=== PATIENT | female | born 1950 | race Caucasian/White ===

== ENCOUNTER 2017-08-28 15:46 | Emergency (ER) | payer MEDICARE ==
[2017-08-28] MEDS ORDERED: ISOVUE-370 76%-LOCM 1 ML ONE (16:03)
--- NOTE | 2017-08-28 16:25 | RAD ---
CHEST ONE VIEW: History: Dizziness. Dyspnea. Comparison: 11-25-15 FINDINGS: Cardiac silhouette is magnified by projection. Pulmonary vasculature is unremarkable. Mediastinum is midline. There is no confluent airspace consolidation or evidence of pneumothorax. IMPRESSION: No active cardiopulmonary abnormalities are demonstrated. POS: [facility]
[2017-08-28 16:28] LABS: #Eosinphils 0.5 thou/uL (0.0-0.7); #Lymphocytes 2.2 thou/uL (1.20-3.40); #Monocytes 0.4 thou/uL (0.11-0.59); #Neutrophils 6.8 thou/uL (1.40-6.50); %Basophils 0.5 % (0.0-1.0); %Eosinophils 5.2 % (0.0-10.0); %Lymphocytes 22.2 % (21.0-51.0); %Monocytes 4.4 % (0.0-10.0); Hematocrit 34.8 % (36.0-47.0); Mean Platelet Volume 7.6 fL (7.4-10.4); Red Blood Cell (RBC) Count 3.56 mill/uL (4.20-5.40)
[2017-08-28 16:46] LABS: Lactic Acid - Sepsis 1.2 mmol/L (0.5-2.2)
--- NOTE | 2017-08-28 16:48 | CT ---
CT CERVICAL SPINE NONCONTRAST: 08/28/17 HISTORY: Neck injury. COMPARISON: 12/08/11 FINDINGS: Vertebral body heights and alignment are maintained. Bone island within the C3 vertebral body is sim ilar in appearance to the prior study. Degenerative changes at the right C2-3 facet has progressed s ruben the prior study. Scattered disc bulge and osteophytosis are again demonstrated. There is calcif ication of the arterial structures. IMPRESSION: 1. Cervical spondylosis. No acute osseous abnormalities are demonstrated. 2. Atherosclerosis. POS: [facility]
[2017-08-28 16:50] LABS: ALT (SGPT) 24 U/L (8-55); AST (SGOT) 26 U/L (5-34); Alkaline Phosphatase 81 U/L (40-150); Anion Gap 14 mmol/L (10-20); BUN (Urea Nitrogen) 15 mg/dL (9.8-20.1); Bilirubin, Total 0.4 mg/dL (0.2-1.2); CK (CPK) 46 U/L (29-168); Calc. Creatinine Clearance 0 mL/min (70-130); Calcium 10.5 mg/dL (7.8-10.44); Carbon Dioxide 36 mmol/L (23-31); Chloride 95 mmol/L (98-107); Estimated GFR-MDRD 14; Globulin 3.5 g/dL (2.4-3.5); Magnesium 2.2 mg/dL (1.6-2.6); Protein, Total 7.5 g/dL (6.0-8.3)
--- NOTE | 2017-08-28 16:51 | CT ---
HEAD CT WITHOUT CONTRAST: 08/28/17 COMPARISON: 08/29/13 HISTORY: 66-year-old female status post dialysis with complaints of elevated blood pressure and dizziness. TECHNIQUE: Serial axial CT imaging obtained at 5 mm intervals from vertex through skull base without contrast. FINDINGS: The imaged paranasal sinuses and mastoid air cells are well aerated. There is no displaced calvarial fracture. There is atherosclerotic calcification of the cavernous carotid arteries and the distal v ertebral arteries. There is no intracranial hemorrhage, midline shift, mass effect or ventricular en largement. There is abnormal increased density involving the globe on the left with peripheral calci fications of the left globe suggesting sequela of prior trauma or surgery, an appearance which is st able when compared to the 08/29/13 exam. IMPRESSION: Stable head CT. No intracranial hemorrhage. POS: [facility]
[2017-08-28 16:54] LABS: Troponin I 0.012 ng/mL (< 0.028)
[2017-08-28] MEDS ORDERED: Diazepam 10 MG/2 ML SYRINGE ONE (19:12)
--- NOTE | 2017-08-28 19:20 | CT ---
CTA OF THE NECK UTILIZING IV CONTRAST AND 3D REFORMATTED IMAGIN08/28/17 INDICATION: History of right sided vascular murmur as well as neck pain and immunodeficiency. COMPARISON: Prior exam dated 08/29/13. FINDINGS: No hemodynamically significant stenosis is seen involving the internal carotid arteries. There is mo derate calcification noted involving the proximal ICA/slightly more progressed in extent from the co mparison exam. There is extensive calcification involving the intracranial carotid arteries that matheus ear slightly more pronounced from the prior exam. The vertebral arteries are patent throughout they entire course. There is some mild vascular calcifications seen along their proximal cervical segment s. The subclavian and common carotid arteries appear within normal limits. No definite central canal narrowing is evident. No definite fluid collection is grossly evident within the osseous central ca nal. There is mild multilevel spondylosis of the cervical spine. No acute fracture is evident. There is a sclerotic lesion within the left aspect of C4 which is stable suspicious for bone island. The parotid and submandibular glands are normal appearing. The thyroid gland is normal appearing. No lymphadenopathy is evident. The visualized paranasal sinuses are clear. There is calcification invo lving the left orbit which may be related to chronic retinal detachment. The right modoc lens has b een replaced. IMPRESSION: 1. No hemodynamically significant stenosis. 2. No definite suspicious fluid collection evident within the central canal of the cervical spi ne to suggest an epidural abscess grossly. 3. No lymphadenopathy is evident. No definite soft tissue mass is evident within the neck. 4. Calcification involving the left globe likely related to chronic retinal detachment. 5. Mild spondylosis of the cervical spine. POS: [facility]
--- NOTE | 2017-09-07 16:40 | EKG ---
Test Reason : DIZZINESS Blood Pressure : / mmHG Vent. Rate : 068 BPM Atrial Rate : 068 BPM P-R Int : 196 ms QRS Dur : 088 ms QT Int : 432 ms P-R-T Axes : 059 010 096 degrees QTc Int : 459 ms Normal sinus rhythm Abnormal ECG nc since 25-NOV-2015 Confirmed by NEGRITO ENGLISH, MARISELA ([id number]), makeup editor AMY ADAMS ([id number]) on 09/07/2017 4:40:19 PM Referred By: MAHIN Confirmed By:MARISELA MAHAN MD
== END 2017-08-28 19:40 | disposition home or self-care (01) ==
LOC: ERS 15:46
DX: M54.2 Cervicalgia (principal); I25.2 Old myocardial infarction; I11.0 Hypertensive heart disease with heart failure; I50.9 Heart failure, unspecified; E11.9 Type 2 diabetes mellitus without complications; D50.0 Iron deficiency anemia secondary to blood loss (chronic); F41.9 Anxiety disorder, unspecified; F32.9 Major depressive disorder, single episode, unspecified; Z79.82 Long term (current) use of aspirin; Z79.899 Other long term (current) drug therapy; Z79.4 Long term (current) use of insulin; Z99.2 Dependence on renal dialysis
CPT/HCPCS: 70450; 70498; 71010; 72125; 80053; 82553; 83605; 83735; 84484; 85025; 93005; 96374; J3360

== ENCOUNTER 2017-09-23 12:27 | Emergency (ER) | payer MEDICARE ==
[2017-09-23 13:49] LABS: #Eosinphils 0.3 thou/uL (0.0-0.7); #Lymphocytes 2.2 thou/uL (1.20-3.40); #Monocytes 0.6 thou/uL (0.11-0.59); #Neutrophils 6.8 thou/uL (1.40-6.50); %Basophils 0.3 % (0.0-1.0); %Eosinophils 2.9 % (0.0-10.0); %Lymphocytes 22.1 % (21.0-51.0); %Monocytes 5.8 % (0.0-10.0); Hematocrit 35.7 % (36.0-47.0); Mean Platelet Volume 7.2 fL (7.4-10.4); Red Blood Cell (RBC) Count 3.55 mill/uL (4.20-5.40); White Blood Cell (WBC) Count 9.8 thou/uL (4.8-10.8)
[2017-09-23 14:09] LABS: Lactic Acid - Sepsis 0.8 mmol/L (0.5-2.2)
[2017-09-23 14:12] LABS: ALT (SGPT) 15 U/L (8-55); AST (SGOT) 18 U/L (5-34); Alkaline Phosphatase 75 U/L (40-150); Anion Gap 14 mmol/L (10-20); BUN (Urea Nitrogen) 24 mg/dL (9.8-20.1); Bilirubin, Total 0.4 mg/dL (0.2-1.2); CK (CPK) 53 U/L (29-168); Calc. Creatinine Clearance 0 mL/min (70-130); Carbon Dioxide 29 mmol/L (23-31); Chloride 100 mmol/L (98-107); Estimated GFR-MDRD 11; Globulin 3.2 g/dL (2.4-3.5); Protein, Total 7.1 g/dL (6.0-8.3)
[2017-09-23 14:27] LABS: Troponin I 0.016 ng/mL (< 0.028)
--- NOTE | 2017-09-23 14:40 | RAD ---
PORTABLE AP CHEST XRAY: DATE: 09/23/17. HISTORY: Cough, hemoptysis. COMPARISON: 08/28/17. FINDINGS: The cardiac silhouette and pulmonary vasculature are within normal limits for the portable technique of the study. The lungs are clear. Osseous structures are intact. IMPRESSION: No acute cardiopulmonary process. POS: [facility]
--- NOTE | 2017-09-23 16:20 | CT ---
CT PULMONARY ANGIO CHEST WITH IV CONTRAST: Date: 09/23/17 Multiple axial tomograms obtained through chest following pulmonary angio protocol with multiplanar r econstructions and 3D postprocessing. HISTORY: Cough, hemoptysis. FINDINGS: The pulmonary arteries show adequate opacification. There is no evidence of pulmonary embolus. The lungs are clear of infiltrate. No effusion. Some mild linear atelectasis in the left lung base is noted. Mediastinum is unremarkable. Thoracic aorta is unremarkable. No evidence of dissection. Mild atherosc lerotic change is noted. Evidence of small sliding diaphragmatic hernia. IMPRESSION: 1. No evidence of pulmonary embolus. 2. Linear atelectasis in the left mid lung. 3. Otherwise no acute process. POS: [facility]
== END 2017-09-23 16:22 | disposition home or self-care (01) ==
LOC: ERS 12:27
DX: R05 Cough (principal); I25.2 Old myocardial infarction; E11.9 Type 2 diabetes mellitus without complications; I11.0 Hypertensive heart disease with heart failure; I50.9 Heart failure, unspecified; F41.9 Anxiety disorder, unspecified; F32.9 Major depressive disorder, single episode, unspecified; Z79.82 Long term (current) use of aspirin; Z79.4 Long term (current) use of insulin; Z79.899 Other long term (current) drug therapy
CPT/HCPCS: 36415; 71010; 71275; 80053; 82550; 82553; 83605; 84484; 85025; 85379; 93005

== ENCOUNTER 2020-06-04 14:51 | Inpatient (IN) | payer MEDICARE ==
[2020-06-04] MEDS ORDERED: methylPREDNISolone Sod Succ/PF 125 MG/2 ML VIAL ONE ×2 (15:16→15:19)
[2020-06-04] MEDS ORDERED: Ondansetron PF 4 MG/2 ML Vial ONE ×2 (15:16→15:19)
[2020-06-04 15:23] LABS: #Basophils 0.1 thou/uL (0.0-0.2); #Lymphocytes 1.4 thou/uL (1.20-3.40); #Monocytes 0.3 thou/uL (0.11-0.59); #Neutrophils 17.1 thou/uL (1.40-6.50); %Basophils 0.4 % (0.0-1.0); %Eosinophils 0.3 % (0.0-10.0); %Lymphocytes 7.5 % (21.0-51.0); %Monocytes 1.5 % (0.0-10.0); %Neutrophils 90.3 % (42.0-75.0); Hemoglobin 12.1 g/dL (12.0-16.0); Mean Corpuscular HGB CONC 30.8 g/dL (32.0-36.0); Mean Corpuscular Volume 97.5 fL (78.0-98.0); Mean Platelet Volume 7.8 fL (7.4-10.4); Platelet Count 396 thou/uL (130-400); RBC Distribution Width 13.1 % (11.5-14.5); Red Blood Cell (RBC) Count 4.01 mill/uL (4.20-5.40); White Blood Cell (WBC) Count 18.9 thou/uL (4.8-10.8)
[2020-06-04 15:27] LABS: Base Excess-Venous -2.4 mmol/L (-2.0 to 3.0); CO2 Tension (PvCO2) 31.4 mmHg (40.0-50.0); Calcium, Ionized 0.96 mmol/L (See Comments:); Chloride 104 mmol/L (98-107); Hemoglobin - Calc 14.2 g/dL (12.0-16.0); Potassium 5.5 mmol/L (3.5-5.1); Sodium 134 mmol/L (138-145); T. Carbon Dioxide 21.9 mmol/L (22.0-28.0); vO2 Saturation-calc 99.7 % (60.0-85.0)
[2020-06-04 15:32] LABS: PTT 21.6 sec (22.9-36.1); Prothrombin Time 12.9 sec (12.0-14.7)
[2020-06-04] MEDS ORDERED: Albuterol Sulfate 2.5 mg/3 ml Neb ONE (15:36)
[2020-06-04] MEDS ORDERED: Albuterol Sulfate 2.5 mg/0.5 ml Neb ONE (15:36)
[2020-06-04] MEDS ORDERED: Lorazepam 2 MG/ML VIAL ONE ×2 (15:41→18:51)
[2020-06-04 15:44] LABS: ALT (SGPT) 11 U/L (8-55); AST (SGOT) 24 U/L (5-34); Albumin 4.1 g/dL (3.4-4.8); Alkaline Phosphatase 104 U/L (40-110); Anion Gap 25 mmol/L (10-20); BUN (Urea Nitrogen) 72 mg/dL (9.8-20.1); Bilirubin, Total 0.7 mg/dL (0.2-1.2); Calc. Creatinine Clearance 0 mL/min (70-130); Calcium 9.8 mg/dL (7.8-10.44); Carbon Dioxide 18 mmol/L (23-31); Chloride 98 mmol/L (98-107); Estimated GFR-MDRD 7; Glucose 179 mg/dL (80-115); Potassium 5.6 mmol/L (3.5-5.1); Protein, Total 8.1 g/dL (6.0-8.3); Sodium 135 mmol/L (136-145)
[2020-06-04 16:06] LABS: CKMB 1.9 ng/mL (0-6.6)
--- NOTE | 2020-06-04 16:29 | RAD ---
EXAM: CHEST ONE VIEW HISTORY: Dyspnea and shortness of breath. COMPARISON: 02/11/2018 FINDINGS: Postoperative changes related to CABG are again noted. There is been interval placement of a dual phuong d right subclavian cardiac pacemaking device. Vascular stent is now seen overlying the region of the left axillary and subclavian vessels. Bilateral perihilar interstitial and alveolar opacities are seen with bibasilar pleural and parenchymal lung changes probably due to bilateral pleural effusions and associated volume loss. Cardiac borders are obscured, but the cardiac silhouette does a ppear mildly enlarged. Vascular calcification in the thoracic aorta. Osteopenia is present. No other interval change. IMPRESSION: 1. Bilateral perihilar interstitial and alveolar opacities which may represent infectious process or asymmetric pulmonary edema. 2. Bilateral pleural effusions and associated atelectasis. 3. Cardiomegaly. 4. Osteopenia.
--- NOTE | 2020-06-04 19:17 | CON ---
DATE OF CONSULTATION: 06/04/2020 CONSULTING PHYSICIAN: ER doctor. REASON FOR CONSULT: End-stage renal disease evaluation and care, shortness of breath, and fluid overload. REASON FOR ADMISSION: Shortness of breath. HISTORY OF PRESENT ILLNESS: This is a white female with history of type 2 diabetes, end-stage renal disease, coronary artery disease, came to the hospital with shortness of breath. The patient missed dialysis today. She usually gets dialysis on Saturday, Saturday, Saturday and missed dialysis on Saturday, yesterday. Came to the ER with shortness of breath. She remains fluid overloaded. Plan to have dialysis. The patient cannot give much history. She is very tired and lethargic and short of breath. PAST MEDICAL HISTORY: Positive for type 2 diabetes, end-stage renal disease, left eye blindness, coronary artery disease, chronic anemia, hypertension, anxiety, depression. PAST SURGICAL HISTORY: Dialysis access placement, hysterectomy, cholecystectomy. ALLERGIES: TO MORPHINE. HOME MEDICATIONS: Reviewed. SOCIAL HISTORY: No smoking, alcohol, or illicit drugs. FAMILY HISTORY: She is adopted. REVIEW OF SYSTEMS: The following complete review of systems was negative, unless otherwise mentioned in the HPI or below: Constitutional: Weight loss or gain, ability to conduct usual activities. Skin: Rash, itching. Eyes: Double vision, pain. ENT/Mouth: Nose bleeding, neck stiffness, pain, tenderness. Cardiovascular: Palpitations, dyspnea on exertion, orthopnea. Respiratory: Shortness of breath, wheezing, cough, hemoptysis, fever or night sweats. Gastrointestinal: Poor appetite, abdominal pain, heartburn, nausea, vomiting, constipation, or diarrhea. Genitourinary: Urgency, frequency, dysuria, nocturia. Musculoskeletal: Pain, swelling. Neurologic/Psychiatric: Anxiety, depression. Allergy/Immunologic: Skin rash, bleeding tendency. PHYSICAL EXAMINATION: GENERAL: This is a well-built female, in no apparent distress. VITAL SIGNS: Reviewed. HEENT: Atraumatic and normocephalic. NECK: Supple. CV: S1 and S2, heard. RESPIRATORY: Crackles bilaterally. GI: Abdomen is soft. MUSCULOSKELETAL: DERMATOLOGIC: No skin rash. NEUROLOGIC: Very lethargic, but awake. LABORATORY DATA: Hemoglobin is 12.1. Potassium 5.5, BUN is 72, creatinine is 5.8, sodium is 135. ASSESSMENT AND PLAN: 1. End-stage renal disease. Plan is to have emergent dialysis. Dialysis nurse was notified. 2. Fluid overload with shortness of breath. We will remove fluid with dialysis. 3. Acute hypoxic respiratory failure. 4. History of hypertension. 5. Edema. 6. Anemia of chronic disease. 7. Hyperkalemia. We will have dialysis. 8. Elevated BNP, suggestive of fluid overload. 9. The patient was counseled and will have dialysis today. Limit fluid and salt intake. We will continue counseling. We will continue dialysis as tolerated and as needed. Thank you for the consult. We will follow. Job ID: [id number]
[2020-06-04 22:18] LABS: HBSAg Index 0.14 S/CO (0-0.99); Hep B Core Total Ab Non-Reactive (NonReactive); Hep B Core Total Index 0.05 S/CO (0-0.79); Hep B Surf Ag Non-Reactive S/CO (NonReactive); Hep C IgG Ab Non-Reactive (NonReactive)
[2020-06-04 23:16] LABS: HBSAB Concentration 10.04 mIU/mL
[2020-06-05] MEDS ORDERED: cefTRIAXone\\ROCEPHIN 1 GM VIAL ONE (00:50)
[2020-06-05 01:03] LABS: Troponin I 0.087 ng/mL (< 0.028)
[2020-06-05] MEDS ORDERED: Azithromycin 500 MG VIAL ONE (01:32)
[2020-06-05] MEDS: Azithromycin 500 MG in Sodium Chloride 0.9% 250 ML 250 ML IVPB SCH (01:43)
[2020-06-05 01:58] LABS: SARS-CoV-2 NAA Rapid Test Not Detected (NotDetected)
--- NOTE | 2020-06-05 02:07 | HP ---
CHIEF COMPLAINT: Shortness of breath. HISTORY OF PRESENT ILLNESS: Ms. Fuontain is a 69-year-old female with past medical history of end-stage renal disease, on hemodialysis, presents to the emergency room with shortness of breath started last night. The patient stated that she had severe shortness of breath to extent. She normally wears oxygen maximum at 2 L/minute intermittently. She does dialysis three times a week, but she did not have her most recent dialysis which was scheduled yesterday because she was sick with vomiting. She denies chest pain or abdominal pain or headache. No recent fever. The patient has been coughing with sputum, but states this is occasionally normal for her. In the emergency room, the patient was in respiratory distress, hypoxic, placed on nonrebreather oxygen. Professor Of Sport Management was consulted, who performed urgent hemodialysis in the emergency room. Her oxygen requirement improved from 100% nonrebreather down to 6 L/minute nasal cannula, which still above her baseline. Chest x-ray shows bilateral infiltrates/opacity/edema ? COVID test is being done. The patient empirically started on IV antibiotics. The patient is being admitted to hospital for further management. PAST MEDICAL HISTORY: 1. Diabetes mellitus, type 2. 2. Myocardial infarction. 3. Hypertension. 4. End-stage renal disease, on hemodialysis. 5. Anemia. 6. Congestive heart failure. PAST SURGICAL HISTORY: 1. Coronary artery bypass graft surgery x2. 2. Pacemaker. 3. Left eye surgery. 4. Cholecystectomy. 5. Dialysis shunt. 6. Heart catheterization. SOCIAL HISTORY: The patient denies smoking, alcohol drinking, or drug abuse. FAMILY HISTORY: Reviewed and noncontributory. HOME MEDICATIONS: Please see home medication reconciliation form for updated medications. ALLERGIES: ALLERGIC TO MORPHINE. REVIEW OF SYSTEMS: Review of 14 systems negative except what is mentioned in present illness. PHYSICAL EXAMINATION: GENERAL: The patient is awake, alert, in moderate respiratory distress. VITAL SIGNS: Blood pressure 151/57, pulse is 74, respiratory rate is 20, and oxygen saturation is 97% on nonrebreather. HEAD AND NECK: Normocephalic and atraumatic. Neck is supple. CHEST: Coarse bilateral breath sounds. Respirations are labored. HEART: S1 and S2. Regular. ABDOMEN: Soft, not tender. Bowel sounds present. NEUROLOGIC: Awake, alert, moving extremities. PSYCH: Unable to assess. EXTREMITIES: No clubbing. No cyanosis. GENITOURINARY: No suprapubic tenderness. No flank tenderness. LABORATORY DATA: Chest x-ray shows bilateral perihilar interstitial alveolar opacities, which may represent infectious process or asymmetric pulmonary edema. Also, she has bilateral lower effusions associated with atelectasis, cardiomegaly. Troponin 0.06, which is about her baseline. BNP is elevated at 3746. Sodium is 135, potassium is 5.6, BUN is 72, creatinine is 5.8, and glucose is 179. ABG showed a pH of 7.43, pCO2 of 31, pO2 was 198 on 100% nonrebreather. WBC is 18.9, hemoglobin is 12.1, platelets 396. ASSESSMENT: 1. Acute hypoxic respiratory failure. 2. Pneumonia ? cannot be entirely ruled out. 3. Suspected COVID-19 infection? 4. Pulmonary edema. 5. End-stage renal disease, on hemodialysis. 6. Leukocytosis. 7. Coronary artery disease. 8. Indeterminate troponin. 9. Diabetes mellitus, type 2. 10. Hypertension. PLAN: 1. Admit. 2. Oxygen to keep saturation more than 92%. 3. Empiric IV antibiotics. 4. Hemodialysis was performed in the emergency room by electronics utility worker. 5. Professor Of Sport Management consult for further management. 6. Isolation precautions for now, reassess after obtaining COVID-19 test results. 7. Reconcile home medications. 8. DVT prophylaxis as appropriate. 9. Expected length of stay, 2 midnights or more. Job ID: [id number]
[2020-06-05 03:02] LABS: #Lymphocytes 0.6 thou/uL (1.20-3.40); #Monocytes 0.1 thou/uL (0.11-0.59); #Neutrophils 10.4 thou/uL (1.40-6.50); %Lymphocytes 5.1 % (21.0-51.0); %Monocytes 0.5 % (0.0-10.0); %Neutrophils 94.4 % (42.0-75.0); Hemoglobin 11.3 g/dL (12.0-16.0); Mean Corpuscular HGB CONC 31.5 g/dL (32.0-36.0); Mean Corpuscular Hemoglobin 31.3 pg (27.0-31.0); Mean Corpuscular Volume 99.6 fL (78.0-98.0); Mean Platelet Volume 7.7 fL (7.4-10.4); Platelet Count 271 thou/uL (130-400); RBC Distribution Width 12.8 % (11.5-14.5); Red Blood Cell (RBC) Count 3.61 mill/uL (4.20-5.40)
[2020-06-05 03:18] LABS: Anion Gap 19 mmol/L (10-20); BUN (Urea Nitrogen) 37 mg/dL (9.8-20.1); Calc. Creatinine Clearance 0 mL/min (70-130); Calcium 9.6 mg/dL (7.8-10.44); Carbon Dioxide 23 mmol/L (23-31); Chloride 98 mmol/L (98-107); Estimated GFR-MDRD 13; Glucose 134 mg/dL (80-115); Potassium 4.4 mmol/L (3.5-5.1); Sodium 136 mmol/L (136-145)
[2020-06-05 03:23] LABS: Troponin I 0.115 ng/mL (< 0.028)
--- NOTE | 2020-06-05 04:11 | PDOC.EVN ---
Event Note - Event Note Event Note: [id number] dictated
[2020-06-05 06:05] LABS: Troponin I 0.091 ng/mL (< 0.028)
[2020-06-05] MEDS ORDERED: Famotidine/PF 20 mg/2ml Vial ONE (09:16)
[2020-06-05] MEDS: Famotidine/PF 20 mg/2ml Vial SLOW IVP SCH (09:30)
[2020-06-05] MEDS: Heparin 5,000 UNITS/ML VIAL SC SCH ×2 (09:41→22:03)
--- NOTE | 2020-06-05 12:48 | PRG ---
DATE OF SERVICE: 06/05/2020 SUBJECTIVE: Patient was seen and examined at bedside and overnight events noted. Patient denies shortness of breath or cramps or chest pain or palpitation. No Nausea or vomiting or diarrhea or fever or chills. OBJECTIVE: GENERAL: This is a well-built female, in mild distress. VITAL SIGNS: Reviewed. Musculoskeletal : No tenderness, No edema HEENT: Atraumatic normocephalic Neck: Supple Cardiovascular: S1S2 heard, Rate and rhythm regular Respiratory: Clear to auscultation Gastrointestinal: Abdomen is soft Dermatologic : No skin rash Neurologic: Alert and awake and oriented X3 No focal neurologic deficits. Moving all the extremities. Psychiatric: Mood and affect normal LABORATORY DATA: Hemoglobin is at 11.3. Potassium is 4.4, BUN is 37, creatinine is 3.1. ASSESSMENT AND PLAN: 1. End-stage renal disease. The patient had dialysis yesterday, but still remains fluid overloaded. She is on nonrebreather mask. Plan is to have dialysis today mainly for ultrafiltration for 2 hours and continue dialysis Saturday, Saturday, and Saturday. 2. Fluid overload. 3. Shortness of breath. We will have dialysis with fluid removal. 4. Acute hypoxic respiratory failure. 5. History of hypertension. 6. Edema. 7. Hyperkalemia, better. Plan to have dialysis today for 2 hours for fluid removal if tolerated. Job ID: [id number] MTDD
[2020-06-05 12:58] LABS: Bilirubin Negative (Negative); Blood, Urine Trace (Negative); Glucose, Urine (Dipstick) 250 mg/dL (Negative); Ketone, Urine Trace mg/dL (Negative); Leukocyte Negative (Negative); Nitrite Negative (Negative); Protein, Urine (Dipstick) > or equal to 300 mg/dL (Neg-Trace); Urobilinogen 0.2 mg/dL (Less than 2); pH, Urine 6.5 (5.0-9.0)
[2020-06-05 13:03] LABS: Clarity Clear (Clear)
[2020-06-05 13:10] LABS: Bacteria/HPF None Seen HPF (None Seen); RBC/HPF 0-3 HPF (0-3); Squamous Epithelial 0-3 HPF (0-3); WBC/HPF 0-3 HPF (0-3)
[2020-06-05] MEDS ORDERED: Prevnar 13-Val Conj/PF 0.5 ML SYRINGE IM ONE (13:45)
[2020-06-05] MEDS: cefTRIAXone\\ROCEPHIN 1 GM in Sodium Chloride 0.9% 100 ML IVPB SCH (15:56)
[2020-06-05] MEDS: Sevelamer Carbonate 800 MG TAB PO SCH (18:24)
[2020-06-05] MEDS: Rosuvastatin 20 MG TAB PO SCH (22:03)
[2020-06-05] MEDS: Carvedilol 25 MG TAB PO SCH (22:04)
--- NOTE | 2020-06-05 22:31 | CON ---
DATE OF CONSULTATION: CHIEF COMPLAINT: Shortness of breath. HISTORY OF PRESENT ILLNESS: Ms. Fountain is a 69-year-old female who sees primary care and all services through the [facility]. She reports that she has had exertional dyspnea on an intermittent basis for a number of years. She has a home oxygen concentrator but uses it on a p.r.n. rather than schedule basis. She reports that she never uses more than about 2 L/minute. She does not have smoking history or underlying emphysema. She states that she had been ill on Saturday and missed her dialysis treatment. On Saturday, she had gone to see her son, but while there became more ill and ultimately developed worsening shortness of breath. She returned and symptoms gradually worsened such that she presented to the emergency room yesterday. She had a chest x-ray showing consolidative findings suspicious for pneumonia. A COVID test was performed and was negative. Because of the presumption that she was volume overloaded, she underwent dialysis last evening and another round of ultrafiltration today for additional 2 L. Despite these dialysis treatments, she continues to complain of dyspnea and is requiring 100% oxygen supplementation. She denies cough or sputum. She has had no fevers or chills. She has had no pleuritic pain. She denies any travel or exposure to ill individuals, although she does routinely go to the dialysis center three times weekly. She is not certain of what is the precipitating factor for this worsening shortness of breath. SOCIAL HISTORY: The patient is a 69-year-old female. She denies history of past smoking. She reports an intolerance to morphine. She is on oxygen and has received her medical care through the [facility]. MEDICATIONS: Her home medication list is not available. PAST MEDICAL HISTORY: Remarkable for diabetes and presumably that is the etiology for her renal failure, for which she has been on dialysis for almost 10 years. She has a past history of coronary artery disease with bypass and she has a pacemaker. She has additional history of hypertension. REVIEW OF SYSTEMS: Remarkable as discussed above. FAMILY HISTORY: Noncontributory. PHYSICAL EXAMINATION: GENERAL: She is an elderly female who seems to appear older than her stated age. She is on a non-rebreather face mask and has some increased work of breathing, although fairly preserved sentence length. VITAL SIGNS: Her blood pressure is 155/64, saturation is 99%, respiratory rate 22, heart rate 74. She is afebrile. She has no adenopathy or JVD. Oropharynx shows no exudate. She has no icterus. LUNGS: Showed diffuse crackles without wheezes or rales. There is no dullness to percussion. HEART: Regular rate and rhythm with distant S1, S2. ABDOMEN: Soft. There is no organomegaly. EXTREMITIES: Show 1+ chronic woody edema of her legs. She has an AV fistula in the left upper arm. LABORATORY: A chest x-ray shows post bypass findings and pacemaker via the right subclavian approach. She has patchy consolidative findings in both lung zones, greater on the right than on the left. There is probably a small effusion on the right. She has a stent visible in the left subclavian. When compared to her x-ray of 2018, a large pleural effusion previously seen on the left has resolved; however, the patchy consolidations have developed. Her white count was initially 18,900, repeated earlier today at 11,000, hemoglobin is 11.3 with hematocrit of 36, and platelet count of 271,000. Chemistries include a sodium 136, potassium 4.4, chloride 98, CO2 is 23, BUN 37, and creatinine 3.5, down from 5.8 on initial presentation before dialysis. Her liver tests are negative. Her urinalysis shows 3+ protein, 2+ glucose. A venous blood gas has shown pH 7.4, CO2 of 31, PO2 of 198, and a bicarbonate 21. It is not specified the oxygen delivery, although I presume it to have been a non-rebreather. IMPRESSION: Acute worsening shortness of breath. The patient adamantly states that she was doing well two days ago and then abruptly short of breath yesterday. She is requiring as much as non-rebreather mask. Her symptoms are not typical for a bacterial pneumonia. It certainly could be heart failure. Radiographically, this could represent COVID. An initial COVID swab was negative. She had missed her dialysis on Saturday and has been losing weight, so a lot of this could be fluid with an underestimation of her weight loss and her true dry weight. Despite fairly aggressive dialysis both yesterday and today, she continues to complain of dyspnea and remains on a non-rebreather face mask. PLAN: At this point, we will continue supportive care and I would encourage aggressive testing of her dry weight tomorrow. I do not think that she has traditional bacterial pneumonia and remains somewhat concerned about the possibility of COVID despite her negative test. Pulmonary Service will continue to follow and offer additional assistance. Job ID: [id number]
[2020-06-06] MEDS: Azithromycin 500 MG in Sodium Chloride 0.9% 250 ML 250 ML IVPB SCH ×2 (02:24→17:14)
[2020-06-06] MEDS: cefTRIAXone\\ROCEPHIN 1 GM in Sodium Chloride 0.9% 100 ML IVPB SCH ×2 (02:26→17:14)
[2020-06-06] MEDS: Acetaminophen 325 MG TAB PO PRN ×2 (02:53→10:54)
[2020-06-06] MEDS: Lactinex Tablet PO SCH (07:51)
[2020-06-06] MEDS: Heparin 5,000 UNITS/ML VIAL SC SCH ×2 (07:52→20:59)
[2020-06-06] MEDS: Famotidine/PF 20 mg/2ml Vial SLOW IVP SCH (07:52)
[2020-06-06] MEDS: Sevelamer Carbonate 800 MG TAB PO SCH ×3 (07:52→17:30)
[2020-06-06] MEDS: Folic Acid/Vit B Comp W-C PO SCH (07:52)
[2020-06-06] MEDS: Aspirin 81 mg Enteric Coated Tablet PO SCH (07:52)
[2020-06-06] MEDS: Carvedilol 25 MG TAB PO SCH ×2 (07:52→20:58)
[2020-06-06] MEDS ORDERED: Iopamidol 370 76% 100 ML VIAL ONE (11:14)
--- NOTE | 2020-06-06 12:52 | PRG ---
DATE OF SERVICE: 06/06/2020 SUBJECTIVE: A 69-year-old female, being seen for end-stage renal disease. The patient denied nausea, vomiting, or chest pain. OBJECTIVE: General: The patient is awake and alert. Vital Signs: Afebrile, pulse 75, breathing at 16, blood pressure 120/58. HEENT: Head normocephalic and atraumatic. Eyes intact, no ulcers. Nose intact, no ulcers. Ears intact, no ulcers. Neck: Supple. No JVD. Chest: Symmetrical and clear. Cardiovascular: Shows S1 and S2, no rub, no murmur. Gastrointestinal: Abdomen is soft, bowel sounds positive. Extremities: Show no edema or ulcers. Skin: Shows no rash or petechiae. Musculoskeletal: Shows no joint swelling or stiffness. Genitourinary: Shows no Bell or CVA tenderness. Neurologic: Motor intact. Cranial nerves intact. LABORATORY DATA: Reviewed. ASSESSMENT AND PLAN: 1. Stage 6 chronic kidney disease, plan dialysis. 2. Hypertension, stable. 3. Anemia, stable. 4. Congestive heart failure and noncompliance, dialysis today. Job ID: [id number]
--- NOTE | 2020-06-06 14:02 | CT ---
CT PULMONARY ANGIOGRAM WITH IV CONTRAST AND 3D POSTPROCESSING: Date: 06/06/2020 HISTORY: Sudden onset shortness of breath. FINDINGS: There is good contrast opacification of the pulmonary arterial vasculature without filling defects to suggest pulmonary embolism. There are vascular calcifications without evidence of aneurysmal dilatat ion of the thoracic aorta. No pericardial effusion is seen. There is a small left and a moderate righ t pleural effusion with adjacent atelectatic change/consolidation. There are patchy ground-glass opac ities in the visualized lung white. Some of the mediastinal lymph nodes are enlarged measuring up to 13.0 mm. There are degenerative changes in the spine. IMPRESSION: 1. No CT evidence of pulmonary embolism. 2. Bilateral pleural effusions with adjacent atelectatic changes/consolidation, right greater than l eft. 3. Bilateral ground-glass opacities. Correlate for COVID-19 infection. POS: [facility]
--- NOTE | 2020-06-06 15:09 | PDOC.HOSPP ---
- Subjective Encounter Date: 06/06/20 Encounter Time: 10:30 Subjective: pt up in bed feels sob - Objective Vital Signs & Weight: Vital Signs (12 hours) Temp Pulse Resp BP Pulse Ox 06/06/20 07:48 98.1 F 66 24 H 120/58 L 99 06/06/20 04:00 97.5 F L 65 17 122/53 L 100 Weight Admit Weight 155 lb Weight 154 lb 4.8 oz I&O: 06/05/20 06/06/20 06/07/20 06:59 06:59 06:59 Intake Total 300 Balance 300 Result Diagrams: 06/05/20 02:42 06/05/20 02:42 Hospitalist ROS - Review of Systems Respiratory: reports: shortness of breath Cardiovascular: denies: chest pain, palpitations, orthopnea, paroxysmal noc. dyspnea, edema, light headedness, other Gastrointestinal: denies: nausea, vomiting, abdominal pain, diarrhea, constipation, melena, hematochezia, other Genitourinary: denies: dysuria, frequency, incontinence, hematuria, retention, other - Medication Medications: Active Medications Generic Name Dose Route Start Last Admin Trade Name Freq PRN Reason Stop Dose Admin Acetaminophen 650 mg 06/05/20 00:16 06/06/20 10:54 Tylenol PO 650 mg Q4H PRN Administration Headache/Fever/Mild Pain (1-3) Acidophilus 1 tab 06/06/20 09:00 06/06/20 07:51 Floranex PO 1 tab DAILY [facility] Administration Aspirin 81 mg 06/06/20 09:00 06/06/20 07:52 Ecotrin PO 81 mg DAILY [facility] Administration Carvedilol 25 mg 06/05/20 21:00 06/06/20 07:52 Coreg PO 25 mg BID [facility] Administration Famotidine 20 mg 06/05/20 09:00 06/06/20 07:52 Pepcid SLOW IVP Not Given DAILY [facility] Heparin Sodium (Porcine) 5,000 units 06/05/20 09:00 06/06/20 07:52 Heparin SC Not Given BID [facility] Azithromycin 500 mg/ Sodium 250 mls @ 250 mls/hr 06/05/20 01:00 06/05/20 01: 43 Chloride IVPB 250 mls Q24HR [facility] Administration Ceftriaxone Sodium 1 gm/ 100 mls @ 200 mls/hr 06/05/20 02:00 06/05/20 15:56 Sodium Chloride IVPB Not Given Q24HR [facility] Isosorbide Mononitrate 30 mg 06/06/20 09:00 06/06/20 07:51 Imdur Er PO 30 mg DAILY [facility] Administration Rosuvastatin Calcium 40 mg 06/05/20 21:00 06/05/20 22:03 Crestor PO 40 mg HS [facility] Administration Sevelamer Carbonate 2,400 mg 06/05/20 17:00 06/06/20 12:44 Renvela PO 2,400 mg TID-WM [facility] Administration Vitamin B Complex/Vit C/Folic Acid 1 tab 06/06/20 09:00 06/06/20 07:52 Nephro-Alexi Tablet PO 1 tab DAILY [facility] Administration - Exam Neck: negative: supple, symmetric, no JVD, no thyromegaly, no lymphadenopathy, no carotid bruit, JVD Heart: negative: RRR, no murmur, no gallops, no rubs, normal peripheral pulses, irregular, diminshed peripheral pulses, murmur present, II/IV, III/IV Respiratory: negative: CTAB, no wheezes, no rales, no ronchi, normal chest expansion, no tachypnea, normal percussion, rales, rhonchi, tachypneic, wheezes Gastrointestinal: negative: soft, non-tender, non-distended, normal bowel sounds , no palpable masses, no hepatomegaly, no splenomegaly, no bruit, no guarding, no rigidity, tender to palpation, distended, diminished bowl sounds, voluntary guarding Hosp A/P (1) Acute respiratory failure with hypoxia Code(s): J96.01 - ACUTE RESPIRATORY FAILURE WITH HYPOXIA Status: Acute (2) COVID-19 Code(s): U07.1 - COVID-19 Status: Acute (3) ESRD (end stage renal disease) Code(s): N18.6 - END STAGE RENAL DISEASE Status: Acute - Plan pt has been tested for covid multiple times and she has been negative. Her cta indicated ground glass appearance. will consult Id. echo ordered.pt states that she go sob all of a sudden. she has been tested multiple times for covid and has been negative.
[2020-06-06] MEDS: Dexamethasone 4 mg/ml Vial SLOW IVP SCH (17:30)
--- NOTE | 2020-06-06 18:32 | CON ---
DATE OF CONSULTATION: REASON FOR CONSULTATION: Dyspnea, abnormal CT scan of chest, and concern with COVID infection. HISTORY OF PRESENT ILLNESS: A 69-year-old with history of coronary artery disease, type 2 diabetes, hypertension, end-stage renal disease with hemodialysis through an AV fistula, who has noticed worsening dyspnea since Saturday, one day before admission. She reports at dialysis they have been trying to remove fluid from her, she was having excessive fluid balance over the past few weeks. Denied any cough, but did have quite a bit of dyspnea. No fever or chills. No diarrhea. No genitourinary symptoms. No neurological symptoms. She came to the emergency room, and on arrival, her BP 170/115, pulse 82, respirations 25, and O2 saturation 94 on nonrebreathing Ventimask. There were inspiratory crackles in lung sounds and no wheezing. Heart exam shows S1 and S2 with tachycardia. No murmurs. Abdomen is soft and not distended. CT showed ground-glass opacities in both lung white, but the COVID test has been negative at least x1 that I see here. There is another one pending. Currently, Ms. Fountain has finished her bathing and she has had dialysis and they shelly some more fluid from her. She is feeling better, still wearing oxygen. REVIEW OF SYSTEMS: Ten-point review of systems as above, was not remarkable. PAST MEDICAL HISTORY: 1. Type 2 diabetes. 2. Coronary artery disease. 3. Bypass graft surgery. 4. Hypertension. 5. End-stage renal disease, on hemodialysis with AV fistula. 6. Iron-deficiency. SOCIAL HISTORY: Never smoker. Lives by herself in a residential unit for retired persons, right across from the hospital here. No alcoholic beverage use. ALLERGIES: MORPHINE WITH ANAPHYLAXIS REPORTEDLY. CURRENT MEDICATIONS: 1. Floranex. 2. Norvasc. 3. Ecotrin. 4. Coreg. 5. Decadron. 6. Imdur. 7. Crestor. 8. Renvela. 9. Zanaflex. PHYSICAL EXAMINATION: VITAL SIGNS: T-max 98.1, blood pressure 120/58, pulse 66, respirations 17 to 24 , and O2 saturation 94. GENERAL: She appears in no distress. She has O2 nasal cannula. LUNGS: Fairly clear to auscultation and percussion. SKIN: With a few areas of bruising in the extremities. No lymphadenopathy. HEENT: Ocular movements conjugate. Oral cavity with numerous missing teeth. HEART: S1 and S2. Regular rate. No S3 or S4. ABDOMEN: Soft, not distended or tender. EXTREMITIES: The edema has reduced in size in the lower extremities, now she has 1+ edema. Pulses 1+ in dorsalis pedis. NEUROLOGIC: She is able to stand up and bear weight. She is oriented, follows commands, good recollection. Speech is normal. LABORATORY DATA: Hepatitis serology negative. White cell count is 18,000 down to 11,000, hemoglobin 11, platelets 271, and 94% neutrophils. INR 1.0. A pH of 7.4, pCO2 of 31, pO2 of 198. Creatinine 3.48. Brain natriuretic peptide was 3745. Urine was normal. SARS-CoV negative. ASSESSMENT: 1. End-stage renal disease secondary to 2 diabetes. 2. Coronary artery disease. 3. Ischemic cardiomyopathy. 4. Prior bypass graft surgery. 5. Worsening dyspnea of fairly acute onset with not much coughing spells, no fever. Negative COVID PCR test x1 with a 2nd pending. DISCUSSION: Differential diagnosis includes pulmonary edema versus COVID infection versus other forms of inflammatory pulmonary infiltrates including cryptogenic organizing pneumonia and so on. Lipoid pneumonia is another possibility, or pulmonary alveolar proteinosis. I think the more likely scenario is pulmonary edema. Pulmonary edema is well known to be associated with crazy-paving pattern/ground-glass opacity pattern as noted in her case. The COVID test will be followed by the definitive answer will be a repeat test showing that there is resolution of the pattern in the ensuing few days. Job ID: [id number] [facility]
[2020-06-06] MEDS: Rosuvastatin 20 MG TAB PO SCH (20:58)
[2020-06-06 21:44] LABS: SARS-CoV-2 IgG Ab Non-Reactive (NonReactive); SARS-CoV-2 IgG Index 0.01 S/CO (< 1.40)
[2020-06-07] MEDS: Azithromycin 500 MG in Sodium Chloride 0.9% 250 ML 250 ML IVPB SCH ×2 (00:07→00:45)
[2020-06-07] MEDS: cefTRIAXone\\ROCEPHIN 1 GM in Sodium Chloride 0.9% 100 ML IVPB SCH (02:30)
[2020-06-07] MEDS: Sevelamer Carbonate 800 MG TAB PO SCH ×3 (08:43→16:24)
[2020-06-07] MEDS: Folic Acid/Vit B Comp W-C PO SCH (08:43)
[2020-06-07] MEDS: Amlodipine 10 MG TAB PO SCH (08:43)
[2020-06-07] MEDS: Aspirin 81 mg Enteric Coated Tablet PO SCH (08:43)
[2020-06-07] MEDS: Lactinex Tablet PO SCH (08:43)
[2020-06-07] MEDS: hydrALAZINE 25 MG TAB PO SCH (08:44)
[2020-06-07] MEDS: Carvedilol 25 MG TAB PO SCH ×2 (08:44→20:49)
[2020-06-07] MEDS: Famotidine/PF 20 mg/2ml Vial SLOW IVP SCH (08:44)
[2020-06-07] MEDS: Heparin 5,000 UNITS/ML VIAL SC SCH ×2 (08:44→20:49)
--- NOTE | 2020-06-07 12:00 | PRG ---
DATE OF SERVICE: 06/07/2020 SUBJECTIVE: Eliana Fountain is a 69-year-old female who sees a [facility]. She was seen by Pulmonary/Critical Care with respiratory failure, bilateral infiltrates, and shortness of breath. This morning, she says, she is feeling better. Her initial coronavirus test was negative. She was re-swabbed again to make sure it was not a false-negative test. Chest x-ray shows bilateral ground-glass haziness, pleural effusion, right greater than left. OBJECTIVE: VITAL SIGNS: Her saturations are 100% on 3 L, respiratory rate 14, temperature 97, pulse 67, blood pressure 164/70. CHEST: Decreased breath sounds. No wheezing. CARDIAC: Normal S1, S2. No gallops. ASSESSMENT: Bilateral pleural effusion, right greater than left. CHF. Echocardiogram shows depressed EF 40% to 45%. Evidence of renal failure. Creatinine 3.48. BNP was 3000. Pulmonary martinez, most of this appears to be cardiac in origin. She has been started on Decadron, Zithromax, ceftriaxone. Unless test is positive, nothing additional to offer. She may benefit from a cardiac input. Job ID: [id number]
--- NOTE | 2020-06-07 12:55 | PRG ---
DATE OF SERVICE: 06/07/2020 SUBJECTIVE: A 69-year-old female, being seen for end-stage renal disease. The patient denied nausea, vomiting, or chest pain. PHYSICAL EXAMINATION: General: The patient is awake and alert. Vital Signs: Afebrile, pulse 84, breathing 16, blood pressure 137/64. HEENT: Head normocephalic and atraumatic. Eyes intact, no ulcers. Nose intact, no ulcers. Ears intact, no ulcers. Neck: Supple. No JVD. Chest: Symmetrical and clear. Cardiovascular: Shows S1 and S2, no rub, no murmur. Gastrointestinal: Abdomen is soft, bowel sounds positive. Extremities: Show no edema or ulcers. Skin: Shows no rash or petechiae. Musculoskeletal: Shows no joint swelling or stiffness. Genitourinary: Shows no Bell or CVA tenderness. Neurologic: Motor intact. Cranial nerves intact. LABORATORY DATA: Reviewed. ASSESSMENT AND PLAN: 1. Stage 6 chronic kidney disease. Plan dialysis per schedule. 2. Hypertension. 3. Anemia, stable. 4. Medication based on GFR, appropriate. Noncompliance is a major issue. Job ID: [id number]
[2020-06-07 14:29] LABS: SARS-CoV-2 MS2 Positive; SARS-CoV-2 N Gene Negative; SARS-CoV-2 S Gene Negative; SARS-CoV-2 by NAA Not Detected (NotDetected); SARS-CoV-2 orf1ab Negative
[2020-06-07] MEDS: Dexamethasone 4 mg/ml Vial SLOW IVP SCH (16:24)
--- NOTE | 2020-06-07 16:25 | PDOC.HOSPP ---
- Subjective Encounter Date: 06/07/20 Encounter Time: 16:19 Subjective: pt up in bed no complains - Objective Vital Signs & Weight: Vital Signs (12 hours) Temp Pulse Resp BP Pulse Ox 06/07/20 12:00 98.5 F 68 17 159/70 H 98 06/07/20 09:00 97.8 F 67 14 164/70 H 100 06/07/20 06:00 68 18 137/65 99 Weight Admit Weight 155 lb Weight 150 lb 12.8 oz I&O: 06/06/20 06/07/20 06/08/20 06:59 06:59 06:59 Intake Total 300 440 Output Total 0 Balance 300 440 Result Diagrams: 06/05/20 02:42 06/05/20 02:42 Hospitalist ROS - Review of Systems Cardiovascular: denies: chest pain, palpitations, orthopnea, paroxysmal noc. dyspnea, edema, light headedness, other Gastrointestinal: denies: nausea, vomiting, abdominal pain, diarrhea, constipation, melena, hematochezia, other Genitourinary: denies: dysuria, frequency, incontinence, hematuria, retention, other - Medication Medications: Active Medications Generic Name Dose Route Start Last Admin Trade Name Freq PRN Reason Stop Dose Admin Acetaminophen 650 mg 06/05/20 00:16 06/06/20 10:54 Tylenol PO 650 mg Q4H PRN Administration Headache/Fever/Mild Pain (1-3) Acidophilus 1 tab 06/06/20 09:00 06/07/20 08:43 Floranex PO 1 tab DAILY [facility] Administration Amlodipine Besylate 10 mg 06/07/20 09:00 06/07/20 08:43 Norvasc PO 10 mg DAILY [facility] Administration Aspirin 81 mg 06/06/20 09:00 06/07/20 08:43 Ecotrin PO 81 mg DAILY [facility] Administration Carvedilol 25 mg 06/05/20 21:00 06/07/20 08:44 Coreg PO 25 mg BID [facility] Administration Dexamethasone 6 mg 06/06/20 16:00 06/06/20 17:30 Decadron SLOW IVP 6 mg Q24HR [facility] Administration Famotidine 20 mg 06/05/20 09:00 06/07/20 08:44 Pepcid SLOW IVP 20 mg DAILY [facility] Administration Heparin Sodium (Porcine) 5,000 units 06/05/20 09:00 06/07/20 08:44 Heparin SC 5,000 units BID [facility] Administration Hydralazine HCl 25 mg 06/07/20 09:00 06/07/20 08:44 Apresoline PO 25 mg DAILY [facility] Administration Azithromycin 500 mg/ Sodium 250 mls @ 250 mls/hr 06/05/20 01:00 06/07/20 00: 45 Chloride IVPB Not Given Q24HR [facility] Ceftriaxone Sodium 1 gm/ 100 mls @ 200 mls/hr 06/05/20 02:00 06/07/20 02:30 Sodium Chloride IVPB 100 mls Q24HR [facility] Administration Isosorbide Mononitrate 30 mg 06/06/20 09:00 06/07/20 08:43 Imdur Er PO 30 mg DAILY [facility] Administration Rosuvastatin Calcium 40 mg 06/05/20 21:00 06/06/20 20:58 Crestor PO 40 mg HS [facility] Administration Sevelamer Carbonate 2,400 mg 06/05/20 17:00 06/07/20 11:57 Renvela PO 2,400 mg TID-WM [facility] Administration Vitamin B Complex/Vit C/Folic Acid 1 tab 06/06/20 09:00 06/07/20 08:43 Nephro-Alexi Tablet PO 1 tab DAILY [facility] Administration - Exam Neck: negative: supple, symmetric, no JVD, no thyromegaly, no lymphadenopathy, no carotid bruit, JVD Heart: negative: RRR, no murmur, no gallops, no rubs, normal peripheral pulses, irregular, diminshed peripheral pulses, murmur present, II/IV, III/IV Respiratory: negative: CTAB, no wheezes, no rales, no ronchi, normal chest expansion, no tachypnea, normal percussion, rales, rhonchi, tachypneic, wheezes Gastrointestinal: negative: soft, non-tender, non-distended, normal bowel sounds , no palpable masses, no hepatomegaly, no splenomegaly, no bruit, no guarding, no rigidity, tender to palpation, distended, diminished bowl sounds, voluntary guarding Hosp A/P (1) Acute respiratory failure with hypoxia Code(s): J96.01 - ACUTE RESPIRATORY FAILURE WITH HYPOXIA Status: Acute (2) COVID-19 Code(s): U07.1 - COVID-19 Status: Acute (3) ESRD (end stage renal disease) Code(s): N18.6 - END STAGE RENAL DISEASE Status: Acute - Plan pt has been tested for covid multiple times and she has been negative. Her cta indicated ground glass appearance. will consult Id. echo ordered.pt states that she go sob all of a sudden. she has been tested multiple times for covid and has been negative. 06/07 pt's serology is negative, repeat covid is negative. pt feels well. will talk with ID if ok to take
[2020-06-07] MEDS: Rosuvastatin 20 MG TAB PO SCH (20:49)
[2020-06-07] MEDS: tiZANidine HCl 4 MG TAB PO PRN (23:21)
[2020-06-07] MEDS: Acetaminophen 325 MG TAB PO PRN (23:22)
[2020-06-08] MEDS: Azithromycin 500 MG in Sodium Chloride 0.9% 250 ML 250 ML IVPB SCH (02:26)
[2020-06-08] MEDS: cefTRIAXone\\ROCEPHIN 1 GM in Sodium Chloride 0.9% 100 ML IVPB SCH (02:26)
[2020-06-08] MEDS: Heparin 5,000 UNITS/ML VIAL SC SCH ×2 (07:50→20:53)
[2020-06-08] MEDS: Famotidine/PF 20 mg/2ml Vial SLOW IVP SCH (07:50)
[2020-06-08] MEDS: Sevelamer Carbonate 800 MG TAB PO SCH ×3 (07:50→16:00)
[2020-06-08] MEDS: Lactinex Tablet PO SCH (07:51)
--- NOTE | 2020-06-08 11:25 | PRG ---
DATE OF SERVICE: 06/08/2020 SUBJECTIVE: A 69-year-old female being seen for end-stage renal disease. The patient denied nausea, vomiting, or chest pain. PHYSICAL EXAMINATION: General: The patient is awake and alert. VITAL SIGNS: Afebrile, pulse , breathing 16, and blood pressure 172/72. HEENT: Head normocephalic and atraumatic. Eyes intact, no ulcers. Nose intact, no ulcers. Ears intact, no ulcers. Neck: Supple. No JVD. Chest: Symmetrical and clear. Cardiovascular: Shows S1 and S2, no rub, no murmur. Gastrointestinal: Abdomen is soft, bowel sounds positive. Extremities: Show no edema or ulcers. Skin: Shows no rash or petechiae. Musculoskeletal: Shows no joint swelling or stiffness. Genitourinary: Shows no Bell or CVA tenderness. Neurologic: Motor intact. Cranial nerves intact. LABORATORY DATA: Reviewed. ASSESSMENT AND PLAN: 1. Stage 6 chronic kidney disease. Plan dialysis. 2. Hypertension, stable. 3. Anemia, stable. 4. Medications based on GFR appropriate. Job ID: [id number]
[2020-06-08] MEDS: Aspirin 81 mg Enteric Coated Tablet PO SCH (12:49)
[2020-06-08] MEDS: Folic Acid/Vit B Comp W-C PO SCH (12:49)
[2020-06-08] MEDS: Carvedilol 25 MG TAB PO SCH ×2 (12:49→20:53)
[2020-06-08] MEDS: Amlodipine 10 MG TAB PO SCH (12:50)
[2020-06-08] MEDS: hydrALAZINE 25 MG TAB PO SCH ×2 (12:50→20:53)
--- NOTE | 2020-06-08 13:22 | PRG ---
DATE OF SERVICE: 06/08/2020 SUBJECTIVE: This morning, she is being dialyzed. Denies any shortness of breath. OBJECTIVE: VITAL SIGNS: Temperature 98, pulse 80, respirations 16, sats 92% on 2 L, and blood pressure 172/72. CHEST: Decreased breath sounds. No wheezing. No crackles. CARDIAC: Normal S1 and S2. No gallops. ABDOMEN: No masses. IMPRESSION: 1. Respiratory failure secondary to congestive heart failure. 2. Chronic renal failure. 3. Coronavirus test negative x2, nothing to suspect pneumonia. I will discontinue IV antibiotics. Consider p.o. medication. Pulmonary/Critical Care will follow at a distance. No need to keep her on any Decadron. Job ID: [id number]
--- NOTE | 2020-06-08 13:50 | PDOC.HOSPP ---
- Subjective Encounter Date: 06/08/20 Encounter Time: 13:00 Subjective: pt up in chair no complains - Objective Vital Signs & Weight: Vital Signs (12 hours) Temp Pulse Resp BP Pulse Ox 06/08/20 12:46 97.2 F L 65 18 156/72 H 99 06/08/20 07:47 98.0 F 83 16 172/72 H 99 06/08/20 02:50 98.0 F 69 18 141/62 H 96 Weight Admit Weight 155 lb Weight 150 lb 2 oz I&O: 06/07/20 06/08/20 06/09/20 06:59 06:59 06:59 Intake Total 440 Output Total 0 Balance 440 Result Diagrams: 06/05/20 02:42 06/05/20 02:42 Hospitalist ROS - Review of Systems Cardiovascular: denies: chest pain, palpitations, orthopnea, paroxysmal noc. dyspnea, edema, light headedness, other Gastrointestinal: denies: nausea, vomiting, abdominal pain, diarrhea, constipation, melena, hematochezia, other Genitourinary: denies: dysuria, frequency, incontinence, hematuria, retention, other - Medication Medications: Active Medications Generic Name Dose Route Start Last Admin Trade Name Freq PRN Reason Stop Dose Admin Acetaminophen 650 mg 06/05/20 00:16 06/07/20 23:22 Tylenol PO 650 mg Q4H PRN Administration Headache/Fever/Mild Pain (1-3) Acidophilus 1 tab 06/06/20 09:00 06/08/20 07:51 Floranex PO 1 tab DAILY [facility] Administration Amlodipine Besylate 10 mg 06/07/20 09:00 06/08/20 12:50 Norvasc PO 10 mg DAILY [facility] Administration Aspirin 81 mg 06/06/20 09:00 06/08/20 12:49 Ecotrin PO 81 mg DAILY [facility] Administration Carvedilol 25 mg 06/05/20 21:00 06/08/20 12:49 Coreg PO 25 mg BID [facility] Administration Famotidine 20 mg 06/05/20 09:00 06/08/20 07:50 Pepcid SLOW IVP 20 mg DAILY [facility] Administration Heparin Sodium (Porcine) 5,000 units 06/05/20 09:00 06/08/20 07:50 Heparin SC 5,000 units BID [facility] Administration Hydralazine HCl 25 mg 06/07/20 09:00 06/08/20 12:50 Apresoline PO 25 mg DAILY [facility] Administration Azithromycin 500 mg/ Sodium 250 mls @ 250 mls/hr 06/05/20 01:00 06/08/20 02: 26 Chloride IVPB Not Given Q24HR [facility] Ceftriaxone Sodium 1 gm/ 100 mls @ 200 mls/hr 06/05/20 02:00 06/08/20 02:26 Sodium Chloride IVPB 100 mls Q24HR [facility] Administration Isosorbide Mononitrate 30 mg 06/06/20 09:00 06/08/20 12:49 Imdur Er PO 30 mg DAILY [facility] Administration Rosuvastatin Calcium 40 mg 06/05/20 21:00 06/07/20 20:49 Crestor PO 40 mg HS [facility] Administration Sevelamer Carbonate 2,400 mg 06/05/20 17:00 06/08/20 12:49 Renvela PO 2,400 mg TID-WM [facility] Administration Tizanidine HCl 2 mg 06/06/20 10:57 06/07/20 23:21 Zanaflex PO 2 mg Q6H PRN Administration Pain Vitamin B Complex/Vit C/Folic Acid 1 tab 06/06/20 09:00 06/08/20 12:49 Nephro-Alexi Tablet PO 1 tab DAILY [facility] Administration - Exam Neck: negative: supple, symmetric, no JVD, no thyromegaly, no lymphadenopathy, no carotid bruit, JVD Heart: negative: RRR, no murmur, no gallops, no rubs, normal peripheral pulses, irregular, diminshed peripheral pulses, murmur present, II/IV, III/IV Respiratory: negative: CTAB, no wheezes, no rales, no ronchi, normal chest expansion, no tachypnea, normal percussion, rales, rhonchi, tachypneic, wheezes Gastrointestinal: negative: soft, non-tender, non-distended, normal bowel sounds , no palpable masses, no hepatomegaly, no splenomegaly, no bruit, no guarding, no rigidity, tender to palpation, distended, diminished bowl sounds, voluntary guarding Hosp A/P (1) Acute respiratory failure with hypoxia Code(s): J96.01 - ACUTE RESPIRATORY FAILURE WITH HYPOXIA Status: Acute (2) COVID-19 Code(s): U07.1 - COVID-19 Status: Acute (3) ESRD (end stage renal disease) Code(s): N18.6 - END STAGE RENAL DISEASE Status: Acute (4) Elevated troponin Code(s): R79.89 - OTHER SPECIFIED ABNORMAL FINDINGS OF BLOOD CHEMISTRY Status : Acute - Plan pt has been tested for covid multiple times and she has been negative. Her cta indicated ground glass appearance. will consult Id. echo ordered.pt states that she go sob all of a sudden. she has been tested multiple times for covid and has been negative. 06/07 pt's serology is negative, repeat covid is negative. pt feels well. will talk with ID if ok to take 06/08 pt's echo received from 2019 which had no changes. will consult cardio since her trops are elevated and she has inferior wall hypokinetic. spoke with ID will get a repeat cxr if improved will take her off precaution. she has had serology and 2 covid test here and they have been negative.
--- NOTE | 2020-06-08 13:50 | RAD ---
EXAM: Single view of the chest HISTORY: Dyspnea COMPARISON: 06/04/2020 FINDINGS: Single view of the chest shows an enlarged but stable cardiomediastinal silhouette. The pa tient is status post CABG. The pacemaker is unchanged in position. There are small bilateral pleural effusions. The infiltrates in the bilateral lungs have significantly improved. Stent is seen in the left arm. IMPRESSION: 1. Improvement of multifocal infiltrates 2. Bilateral pleural effusions
--- NOTE | 2020-06-08 20:11 | CON ---
DATE OF CONSULTATION: HISTORY OF PRESENT ILLNESS: Margo Fountain is a 69-year-old white female with history of end-stage renal disease, who presented on 06/04 with increased shortness of breath. She missed her dialysis day with nausea vomiting on 06/03, and then tried to get in for dialysis on 06/04, but did not. Then, she began to have significant increasing shortness of breath. Came to the emergency room for evaluation. Chest x-ray revealed bilateral infiltrates. COVID was negative. Chest CTA revealed no evidence of pulmonary embolism. There are bilateral effusions. There are bilateral ground-glass opacities. She was placed on antibiotics. States that her breathing has improved. She also has undergone dialysis. She denies any chest discomfort with this. PAST MEDICAL HISTORY: 1. Coronary artery disease. 2. Diabetes. 3. Myocardial infarction. 4. Hypertension. 5. End-stage renal disease, on dialysis. 6. Anemia. PAST SURGICAL HISTORY: 1. CABG x2 at [facility] in 12/2017. 2. Pacemaker placement in 09/2019. 3. Left eye surgery. 4. Cholecystectomy. 5. Dialysis shunt. MEDICATIONS: At home, include: 1. Amlodipine 10 mg daily. 2. Aspirin 81 daily. 3. Carvedilol 25 b.i.d. 4. Benadryl q.8 h. p.r.n. 5. Hydralazine 25 mg daily. 6. DuoNebs q.6 h. p.r.n. 7. Isosorbide mononitrate 30 daily. 8. Probiotic one daily. 9. Zofran p.r.n. 10. Crestor 40 mg nightly. 11. Renvela 2400 mg t.i.d. 12. Zanaflex q.6 h. p.r.n. ALLERGIES: MORPHINE. SOCIAL HISTORY: She does not smoke or drink. FAMILY HISTORY: She states she is adopted. REVIEW OF SYSTEMS: Unremarkable except as noted above. PHYSICAL EXAMINATION: VITAL SIGNS: Blood pressure 163/65 and pulse 65. HEENT: Left eye is blind. NECK: Supple. CHEST: Clear. CARDIAC: S1 and S2 are normal without any S3 or S4. There is a 2/6 holosystolic murmur on the left lower sternal border and at the apex. ABDOMEN: Normal bowel sounds without tenderness. EXTREMITIES: No clubbing, cyanosis, or edema. NEUROLOGIC: Grossly intact. LABORATORY DATA: EKG reveals A-V pacing. Pacemaker interrogation reveals that she is ventricularly paced 99.9% of the time. Echocardiogram revealed ejection fraction of 40% to 45% with mild left ventricular enlargement, inferior wall hypokinesis, moderate to severely dilated left atrium, [id number] mitral regurgitation, calcified aortic valve. (Echocardiogram in 09/2019 at [facility] revealed ejection fraction of 74%, mild mitral and mild tricuspid regurgitation). Hemoglobin 11.3, hematocrit 36.0, white count 11,000, and platelets 271,000. Sodium 136, potassium 4.4, chloride 98, carbon dioxide 23, BUN 37, and creatinine 3.48. Troponin I is 0.115. BNP 3745.2. IMPRESSION: 1. COVID negative. 2. Possible pneumonia, although this also could be related to pulmonary edema. 3. [id number] mitral regurgitation, which is new from September echo. 4. Falling of ejection fraction from 74% to 40% to 45% since September. This probably is related to 100% ventricular pacing. 5. Status post coronary artery bypass graft. 6. End-stage renal disease. 7. Hypertension. 8. Diabetes. 9. Hypercholesterolemia. RECOMMENDATIONS: Blood pressure needs to be somewhat better controlled and her hydralazine dose will be increased to 50 mg b.i.d. Chest x-ray to be repeated to see if there has been clearing of her lung white, which would point more towards this being pulmonary edema than pneumonia. Also, she has a very significantly elevated BNP. Ultimately, she may need to have upgrade of her pacemaker to a biventricular device with drop in her current ejection fraction from where she was before. She will need to follow up with her primary third rail installer at [facility], who have all of her previous information. Job ID: [id number]
--- NOTE | 2020-06-08 20:21 | RAD ---
CHEST 1 VIEW: Date: 06/08/2020 COMPARISON: Earlier exam same date. FINDINGS: Heart size is enlarged. Bilateral pleural and parenchymal lung changes appear fairly similar to the p revious exam. Pacemaker is in place. IMPRESSION: Essentially stable exam given differences in technique. POS: OFF
[2020-06-08] MEDS: Rosuvastatin 20 MG TAB PO SCH (20:53)
[2020-06-09] MEDS: Azithromycin 500 MG in Sodium Chloride 0.9% 250 ML 250 ML IVPB SCH (00:33)
[2020-06-09] MEDS ORDERED: Ondansetron ODT 4 MG TAB PO PRN (01:01)
[2020-06-09] MEDS: tiZANidine HCl 4 MG TAB PO PRN ×2 (01:29→09:41)
[2020-06-09] MEDS: Acetaminophen 325 MG TAB PO PRN (01:30)
[2020-06-09] MEDS: cefTRIAXone\\ROCEPHIN 1 GM in Sodium Chloride 0.9% 100 ML IVPB SCH (01:33)
[2020-06-09] MEDS: Ondansetron PF 4 MG/2 ML Vial IVP PRN ×2 (03:21→09:40)
[2020-06-09] MEDS: Folic Acid/Vit B Comp W-C PO SCH (07:27)
[2020-06-09] MEDS: Aspirin 81 mg Enteric Coated Tablet PO SCH (07:27)
[2020-06-09] MEDS: hydrALAZINE 25 MG TAB PO SCH (07:27)
[2020-06-09] MEDS: Sevelamer Carbonate 800 MG TAB PO SCH ×3 (07:27→18:08)
[2020-06-09] MEDS: Famotidine/PF 20 mg/2ml Vial SLOW IVP SCH (07:28)
[2020-06-09] MEDS: Carvedilol 25 MG TAB PO SCH (07:28)
[2020-06-09] MEDS: Heparin 5,000 UNITS/ML VIAL SC SCH (07:28)
[2020-06-09] MEDS: Amlodipine 10 MG TAB PO SCH (07:28)
[2020-06-09] MEDS: Lactinex Tablet PO SCH (07:28)
--- NOTE | 2020-06-09 12:24 | PRG ---
DATE OF SERVICE: 06/09/2020 SUBJECTIVE: A 69-year-old female being seen for end-stage renal disease. The patient denies any nausea, vomiting, or chest pain. PHYSICAL EXAMINATION: GENERAL: The patient is awake and alert. VITAL SIGNS: Afebrile, pulse 75, breathing at 16, blood pressure 125/60. HEENT: Head normocephalic and atraumatic. Eyes intact, no ulcers. Nose intact, no ulcers. Ears intact, no ulcers. NECK: Supple. No JVD. CHEST: Symmetrical and clear. CARDIOVASCULAR: Shows S1 and S2, no rub, no murmur. GASTROINTESTINAL: Abdomen is soft, bowel sounds positive. EXTREMITIES: Show no edema or ulcers. SKIN: Shows no rash or petechiae. MUSCULOSKELETAL: Shows no joint swelling or stiffness. GENITOURINARY: Shows no Bell or CVA tenderness. NEUROLOGIC: Motor intact. Cranial nerves intact. LABORATORY DATA: Reviewed. ASSESSMENT AND PLAN: 1. Stage 6 chronic kidney disease. Plan dialysis. 2. Hypertension, stable. 3. Anemia, stable. 4. Medication based on GFR, appropriate. Job ID: [id number]
--- NOTE | 2020-06-09 14:29 | PDOC.HOSPP ---
- Subjective Encounter Date: 06/09/20 - Objective Vital Signs & Weight: Vital Signs (12 hours) Temp Pulse Resp BP BP Pulse Ox 06/09/20 12:02 97.9 F 63 17 112/55 L 98 06/09/20 07:51 97 06/09/20 07:22 98.2 F 60 16 121/58 L 97 06/09/20 03:24 98.6 F 64 18 125/60 94 L Weight Admit Weight 155 lb Weight 152 lb 12.485 oz I&O: 06/08/20 06/09/20 06/10/20 06:59 06:59 06:59 Intake Total 960 Output Total 2500 Balance -1540 Result Diagrams: 06/05/20 02:42 06/05/20 02:42 Hospitalist ROS - Medication Medications: Active Medications Generic Name Dose Route Start Last Admin Trade Name Freq PRN Reason Stop Dose Admin Acetaminophen 650 mg 06/05/20 00:16 06/09/20 01:30 Tylenol PO 650 mg Q4H PRN Administration Headache/Fever/Mild Pain (1-3) Acidophilus 1 tab 06/06/20 09:00 06/09/20 07:28 Floranex PO 1 tab DAILY STANLEY Administration Amlodipine Besylate 10 mg 06/07/20 09:00 06/09/20 07:28 Norvasc PO 10 mg DAILY STANLEY Administration Aspirin 81 mg 06/06/20 09:00 06/09/20 07:27 Ecotrin PO 81 mg DAILY STANLEY Administration Carvedilol 25 mg 06/05/20 21:00 06/09/20 07:28 Coreg PO 25 mg BID STANLEY Administration Famotidine 20 mg 06/05/20 09:00 06/09/20 07:28 Pepcid SLOW IVP 20 mg DAILY STANLEY Administration Heparin Sodium (Porcine) 5,000 units 06/05/20 09:00 06/09/20 07:28 Heparin SC 5,000 units BID STANLEY Administration Hydralazine HCl 50 mg 06/08/20 21:00 06/09/20 07:27 Apresoline PO 50 mg BID STANLEY Administration Azithromycin 500 mg/ Sodium 250 mls @ 250 mls/hr 06/05/20 01:00 06/09/20 00: 33 Chloride IVPB Not Given Q24HR [facility] Ceftriaxone Sodium 1 gm/ 100 mls @ 200 mls/hr 06/05/20 02:00 08/13/20 01:33 Sodium Chloride IVPB 100 mls Q24HR STANLEY Administration Isosorbide Mononitrate 30 mg 06/06/20 09:00 06/09/20 07:28 Imdur Er PO 30 mg DAILY STANLEY Administration Ondansetron HCl 4 mg 06/09/20 01:01 06/09/20 01:29 Zofran Odt PO 4 mg Q6H PRN Administration Nausea/Vomiting Ondansetron HCl 4 mg 06/09/20 01:01 06/09/20 09:40 Zofran IVP 4 mg Q6H PRN Administration Nausea/Vomiting Rosuvastatin Calcium 40 mg 06/05/20 21:00 06/08/20 20:53 Crestor PO 40 mg HS STANLEY Administration Sevelamer Carbonate 2,400 mg 06/05/20 17:00 06/09/20 12:01 Renvela PO 2,400 mg TID-WM STANLEY Administration Tizanidine HCl 2 mg 06/06/20 10:57 06/09/20 09:41 Zanaflex PO 2 mg Q6H PRN Administration Pain Vitamin B Complex/Vit C/Folic Acid 1 tab 06/06/20 09:00 06/09/20 07:27 Nephro-Alexi Tablet PO 1 tab DAILY STANLEY Administration Hosp A/P (1) Acute respiratory failure with hypoxia Code(s): J96.01 - ACUTE RESPIRATORY FAILURE WITH HYPOXIA Status: Acute (2) COVID-19 Code(s): U07.1 - COVID-19 Status: Acute (3) ESRD (end stage renal disease) Code(s): N18.6 - END STAGE RENAL DISEASE Status: Acute (4) Elevated troponin Code(s): R79.89 - OTHER SPECIFIED ABNORMAL FINDINGS OF BLOOD CHEMISTRY Status : Acute - Plan pt has been tested for covid multiple times and she has been negative. Her cta indicated ground glass appearance. will consult Id. echo ordered.pt states that she go sob all of a sudden. she has been tested multiple times for covid and has been negative. 06/07 pt's serology is negative, repeat covid is negative. pt feels well. will talk with ID if ok to take 06/08 pt's echo received from 2019 which had no changes. will consult cardio since her trops are elevated and she has inferior wall hypokinetic. spoke with ID will get a repeat cxr if improved will take her off precaution. she has had serology and 2 covid test here and they have been negative. 06/09
[2020-06-09 14:57] VITALS: BMI 25.4
[2020-06-09 16:37] VITALS: BP 118/60; TEMP 97.7
--- NOTE | 2020-06-09 16:53 | EKG ---
Test Reason : SOB Blood Pressure : / mmHG Vent. Rate : 079 BPM Atrial Rate : 079 BPM P-R Int : 162 ms QRS Dur : 168 ms QT Int : 454 ms P-R-T Axes : 051 -31 138 degrees QTc Int : 520 ms Electronic ventricular pacemaker Confirmed by ARUN NOE ([id number]), newspaper editor AMY ADAMS ([id number]) on 06/09/2020 4:50:46 PM Referred By: MARY ALICE MAHMOOD Confirmed By:ARUN Jones
--- NOTE | 2020-06-10 10:53 | PQF ---
CLINICAL DOCUMENTATION CLARIFICATION FORM: Dear : Vanessa Ratliff Date / Time:2019__: 10:50 Please exercise your independent, professional judgment in responding to the clarification form. Clinical indicators are provided on the bottom of this form for your review Please check appropriate box(es): HEART FAILURE: A. ACUITY [ ] Acute [ ] Acute on Chronic [ ] Chronic B. TYPE: [ ] Systolic / HFrEF [ ] Diastolic / HFpEF [ ] Combined Systolic / Diastolic [ ] Hypertensive Heart and Kidney disease [ ] Hypertensive Heart Disease [ ] Hypertensive Kidney Disease [ ] Other diagnosis [ ] Unable to determine In addition, please specify: Present on Admission (POA): [ ] Yes [ ] No [ ] Unable to determine PLEASE REFER TO MY DISCHARGE NOTE To be completed by CDI/Coding staff for physician review: Present Clinical Indicators - Signs / Symptoms / Labs Results and Location in Medical Record [ x] Ejection Fraction =_40-45 % Echocardiogram, 06/06, Meek Romeo MD [ x] Fluid overload H&P, 06/05, Sandy Askew MD [ x] Elevated BNP: 3746 H&P, 06/05, Sandy Askew MD [ x ] Shortness of breath H&P, 06/05, Sandy Askew MD [ x] Pulmonary edema H&P, 06/05, Sandy Askew MD [ x] Heart size is enlarged, bilateral pleural and parenchymal lung changes appear fairly similar to the previous exam Chest X-ray, 06/08, Philipp Early MD Present Risk Factors Results and Location in Medical Record [ x] History of CAD H&P, 06/05, Sandy Askew MD [ x] ESRD Progress note, 06/09, Alva Riddle MD [ x] Hypertension Progress note, 06/09, Alva Riddle MD Present Treatments Results and Location in Medical Record [ x ] Coreg.PO MAR, 06/05 [ x] Echocardiogram Echocardiogram, 06/06, Meek Romeo MD CDS/Tractor Sweeper Operator Signature: Ariadne Tabor Phone #: [phone] Date/Time:_ 06/10/2020/ 10:50 This is a permanent part of the Medical Record [facility]
--- NOTE | 2020-06-13 11:51 | DIS ---
DATE OF ADMISSION: 06/05/2020 DATE OF DISCHARGE: 06/09/2020 DISCHARGE DIAGNOSES: 1. Acute respiratory failure with hypoxia. 2. COVID pneumonia. 3. End-stage renal disease, on dialysis. 4. Elevated troponin. HOSPITAL COURSE: The patient is a 69-year-old female who initially presented to the hospital on 06/05 with complaints of shortness of breath. The patient at this time states that her normal dialysis is 3 times a week, however, she was unable to make her recent dialysis. She just did not feel well, she was coughing with some sputum production. At this time, she came into the hospital. She was put on 100% non-rebreather and was downgraded to 6 L nasal cannula. She underwent a CTA which was negative for a pulmonary embolism, however, her CTA chest appeared to appear to have ground-glass opacities. There was also noted some bilateral pleural effusions and adjacent atelectasis versus consolidation. She was started on some community-acquired pneumonia antibiotics, and she did undergo a COVID test which was negative. She underwent a repeat COVID test and also antibodies which were also negative. Given the findings on her CT scan, Infectious Disease was consulted on this patient. She continued to improve through the hospital stay, and at this time, isolation was stopped for COVID since her antibodies were also negative. She was treated for acute respiratory failure with hypoxia, most likely secondary to volume overload. During the hospital stay, she also underwent an echocardiogram which indicated an EF of 40% to 45%. She had had some inferior wall hypokinesis. Given this new echo finding, I did go ahead and consult Cardiology who recommended for better blood pressure control and also recommended that she may ultimately need an upgrade of her pacemaker to a biventricular device with a drop in her current ejection fraction and recommended to follow up with her project production engineer at [facility]. The patient was advised to do so. She will follow up with her project production engineer at [facility], and she will also follow up with Nephrology. She was also seen by Pulmonary while she was in the hospital. MEDICATIONS: Her home medications will be the following. 1. She is going to be on Omnicef 300 mg a day, this is per dialysis protocol. 2. Isosorbide 30 mg daily. 3. 40 mg daily. 4. Renvela 2400 mg t.i.d. with meals. 5. Norvasc 10 mg daily. 6. Aspirin 81 mg daily. 7. Zanaflex 1 tab p.o. q.6 hours p.r.n. 8. Hydralazine 1 tab daily. 9. Carvedilol 25 mg p.o. b.i.d. DISCHARGE PHYSICAL EXAMINATION: VITAL SIGNS: Temperature 97.7, pulse 63, respirations 16, O2 sat 100% on room air, blood pressure 118/60. GENERAL: She is awake, alert, and oriented x3, does not appear in distress. CV: S1, S2 present. No murmurs, rubs, gallops. PLAN: The patient states that she feels well. She will follow up with her primary and also with Cardiology and also with Nephrology. Job ID: [id number]
== END 2020-06-09 17:38 | disposition home or self-care (01) | DRG 189 ==
LOC: ERS 14:51 → ERHOLD 06-05 00:47 → 2NO 06-05 12:50 → 2SW 06-06 20:11
PROVIDERS: ADMIT Internal Medicine; ATTEND Internal Medicine
PROC: 5A09457 Assistance with Respiratory Ventilation, 24-96 Consecutive Hours, Continuous Positive Airway Pressure (ICD-10-PCS; principal; 2020-06-05)
DX: J96.01 Acute respiratory failure with hypoxia (principal); N18.6 End stage renal disease; I13.0 Hypertensive heart and chronic kidney disease with heart failure and stage 1 through stage 4 chronic kidney disease, or unspecified chronic kidney disease; J90 Pleural effusion, not elsewhere classified; I25.2 Old myocardial infarction; E11.22 Type 2 diabetes mellitus with diabetic chronic kidney disease; D63.1 Anemia in chronic kidney disease; Z20.828 Contact with and (suspected) exposure to other viral communicable diseases; H54.62 Unqualified visual loss, left eye, normal vision right eye; F41.9 Anxiety disorder, unspecified; E87.5 Hyperkalemia; E78.00 Pure hypercholesterolemia, unspecified; I08.1 Rheumatic disorders of both mitral and tricuspid valves; I25.10 Atherosclerotic heart disease of native coronary artery without angina pectoris; I25.5 Ischemic cardiomyopathy; F32.9 Major depressive disorder, single episode, unspecified; I50.9 Heart failure, unspecified; Z99.2 Dependence on renal dialysis; Z95.1 Presence of aortocoronary bypass graft; Z90.49 Acquired absence of other specified parts of digestive tract; Z98.42 Cataract extraction status, left eye; Z98.41 Cataract extraction status, right eye; Z88.6 Allergy status to analgesic agent; Z91.15 Patient's noncompliance with renal dialysis; Z90.710 Acquired absence of both cervix and uterus
CPT/HCPCS: 36415; 71045; 71275; 80048; 80053; 81003; 81015; 82330; 82553; 82803; 83605; 83880; 84484; 85025; 85610; 85730; 86704; 86706; 86769; 86803; 87340; 87635; 90935; 93005; 93306; 94640; 94660; 96365; 96374; 96375; G0257; J0456; J0696; J1100; J1644; J2060; J2405; J2930; J3490; J7050; J7611; J7620; Q0162; Q9967; S0028; U0002; U0003

== ENCOUNTER 2020-12-19 10:08 | Inpatient (IN) | payer MEDICARE ==
[~2020-12-19 10:08] MED LIST: Heparin 10,000 UNITS/ 10 ML VIAL ONE
[2020-12-19 10:46] LABS: Base Excess-Venous -4.4 mmol/L (-2.0 to 3.0); Bicarbonate (HCO3v) 23.4 mmol/L (22.0-28.0); CO2 Tension (PvCO2) 53.1 mmHg (40.0-50.0); Calcium, Ionized 0.94 mmol/L (1.15-1.33); Chloride 104 mmol/L (98-107); Hemoglobin - Calc 13.6 g/dL (12.0-16.0); Potassium 6.2 mmol/L (3.5-5.1); Sodium 133 mmol/L (138-145)
--- NOTE | 2020-12-19 10:49 | RAD ---
EXAM: Single view of the chest HISTORY: Shortness of breath COMPARISON: 06/08/2020 FINDINGS: Single view of the chest shows an enlarged cardiomediastinal silhouette. Atherosclerotic c alcifications are seen in the aorta. The patient is status post sternotomy for CABG. The pacemaker is unchanged in position. There are bilateral pleural effusions with adjacent atelectasis. Degenerat desirae changes are seen in the spine. A stent is seen in the left subclavian region. IMPRESSION: Bilateral pleural effusions with adjacent atelectasis
[2020-12-19 10:50] LABS: #Basophils 0.1 thou/uL (0.0-0.2); #Lymphocytes 2.4 thou/uL (1.20-3.40); #Monocytes 0.6 thou/uL (0.11-0.59); #Neutrophils 10.6 thou/uL (1.40-6.50); %Basophils 0.5 % (0.0-1.0); %Eosinophils 0.4 % (0.0-10.0); %Lymphocytes 17.3 % (21.0-51.0); %Monocytes 4.2 % (0.0-10.0); %Neutrophils 77.7 % (42.0-75.0); Hemoglobin 12.2 g/dL (12.0-16.0); Mean Corpuscular Hemoglobin 32.3 pg (27.0-31.0); Mean Platelet Volume 8.4 fL (7.4-10.4); Platelet Count 248 thou/uL (130-400); RBC Distribution Width 13.6 % (11.5-14.5); Red Blood Cell (RBC) Count 3.78 mill/uL (4.20-5.40); White Blood Cell (WBC) Count 13.6 thou/uL (4.8-10.8)
[2020-12-19] MEDS ORDERED: cefTRIAXone\\ROCEPHIN 1 GM VIAL ONE (10:53)
[2020-12-19] MEDS ORDERED: Lorazepam 2 MG/ML VIAL ONE (10:59)
[2020-12-19] MEDS ORDERED: Calcium Gluc 4.6 MEQ/10 ML (100 MG/ML) ONE (11:07)
[2020-12-19 11:11] LABS: ALT (SGPT) 11 U/L (8-55); AST (SGOT) 21 U/L (5-34); Albumin 3.9 g/dL (3.4-4.8); Alkaline Phosphatase 81 U/L (40-110); Anion Gap 24 mmol/L (10-20); BUN (Urea Nitrogen) 95 mg/dL (9.8-20.1); Bilirubin, Total 0.8 mg/dL (0.2-1.2); CK (CPK) 49 U/L (29-168); Calc. Creatinine Clearance 0 mL/min (70-130); Calcium 8.9 mg/dL (7.8-10.44); Carbon Dioxide 21 mmol/L (23-31); Chloride 98 mmol/L (98-107); Globulin 3.8 g/dL (2.4-3.5); Glucose 150 mg/dL (83-110); Potassium 6.3 mmol/L (3.5-5.1); Protein, Total 7.7 g/dL (5.8-8.1); Sodium 137 mmol/L (136-145)
[2020-12-19 11:33] LABS: CKMB 2.5 ng/mL (0-6.6)
[2020-12-19] MEDS ORDERED: Azithromycin 500 MG VIAL ONE (11:37)
--- NOTE | 2020-12-19 12:06 | CON ---
DATE OF CONSULTATION: REASON FOR CONSULTATION: Hyperkalemia and metabolic acidosis. HISTORY OF PRESENT ILLNESS: A 70-year-old female with a history of noncompliance, presented to the hospital with a potassium of 6.3 and a bicarbonate of 21. We were consulted for urgent dialysis. The patient is complaining of severe shortness of breath. Can give no further history. PAST MEDICAL HISTORY: Hypertension, anemia, secondary hyperparathyroidism, noncompliance, congestive heart failure, coronary artery disease, blindness, dialysis access placement, cholecystectomy, hysterectomy, anxiety, noncompliance. HOME MEDICATIONS: List reviewed. HOSPITAL MEDICATIONS: List reviewed. REVIEW OF SYSTEMS: Fifteen-point review of system was performed and negative except for positives noted above. HEENT: Eyes intact, no diplopia. Ears: No hearing loss or earache. Nose: No discharge or bleeding. Chest: No cough or phlegm. Abdomen: No nausea or vomiting. Genitourinary: No hematuria. No Bell catheter. Musculoskeletal: No low back pain. No joint swelling or pain. Neurological: No syncope. No seizures. Skin: No complaints of rash or itching. Psychiatric: No depression. Constitutional: No weight loss or loss of appetite. PHYSICAL EXAMINATION: General: The patient is awake and alert. Vital Signs: Pulse 75, breathing 16, blood pressure 170/100. HEENT: Head normocephalic and atraumatic. Eyes intact, no ulcers. Nose intact, no ulcers. Ears intact, no ulcers. Neck: Supple. No JVD. Chest: Symmetrical and clear. Cardiovascular: Shows S1 and S2, no rub, no murmur. Gastrointestinal: Abdomen is soft, bowel sounds positive. Extremities: Show no edema or ulcers. Skin: Shows no rash or petechiae. Musculoskeletal: Shows no joint swelling or stiffness. Genitourinary: Shows no Bell or CVA tenderness. Neurologic: Motor intact. Cranial nerves intact. LABORATORY DATA: Labs reviewed. ASSESSMENT AND PLAN: 1. Stage 6 chronic kidney disease, plan urgent dialysis. Nurse was called. 2. Hyperkalemia, plan dialysis. 3. Metabolic acidosis, plan dialysis. 4. Congestive heart failure, plan dialysis. Job ID: [id number]
--- NOTE | 2020-12-19 12:11 | PDOC.FPRHP ---
- History of Present Illness Chief Complaint: Shortness of Breath History of Present Illness: Patient is 70 yo with PMHx of ESRD on HD MWF who presents to ED for shortness of breath. Patient reports that for past 2 days she has been having increased shortness of breath, fluid accumulation in LE, and cough. She has missed dialysis for the past week 2/[address] follows [address] Dr[address] Calle. She has no sick contacts, fevers, chills, or loss of taste or smell. ED Course: Patient was tachycardic and tachypneic, placed on BiPAP 2/2 tachypnea and increased work of breathing. Patient received albuterol, azithromycin 500 mg, Rocephin 1 g, Calcium gluconate 1 g, Ativan 1 mg. - Allergies/Adverse Reactions Allergies Allergy/AdvReac Type Severity Reaction Status Date / Time morphine Allergy Verified 06/05/20 14:53 - Home Medications Medication Instructions Recorded Confirmed Type Amlodipine [Norvasc] 10 mg PO DAILY 06/10/14 06/05/20 History Aspirin [Aspirin EC] 81 mg PO DAILY 06/10/14 06/05/20 History Folic Acid/Vit B Complex and C 1 tab PO DAILY 06/10/14 06/05/20 History [Kylie-Alexi] Isosorbide Mononitrate [Imdur ER] 30 mg PO DAILY 06/10/14 06/05/20 History Lactobacillus Acidophilus 1 capsule PO DAILY 06/10/14 06/05/20 History [Probiotic] Rosuvastatin Calcium [Crestor] 40 mg PO HS 06/10/14 06/05/20 History Sevelamer Carbonate [Renvela] 2,400 mg PO TID- 06/10/14 06/05/20 History Carvedilol [Coreg] 25 mg PO BID 06/05/20 06/05/20 History Ipratropium/Albuterol Sulfate 1 ampule PO Q6H PRN 06/05/20 06/05/20 History Ondansetron [Zofran ODT] 1 tab PO Q8H PRN 06/05/20 06/05/20 History diphenhydrAMINE [Benadryl] 2 cap PO Q8H PRN 06/05/20 06/05/20 History hydrALAZINE [Apresoline] 1 tab PO DAILY 06/05/20 06/05/20 History tiZANidine HCl [Zanaflex] 1 tab PO Q6HR PRN 06/05/20 06/05/20 History Cefdinir [Omnicef] 300 mg PO DAILY #10 cap 06/09/20 Rx - History Hx per chart review and patient PMHx:T2DM, CA s/p CABG X2, HTN, ESRD on HD, Anemia, CHF PSHx: CABG X2, Pacemaker placement, L eye lens removal, Cholecystectomy, Dialysis AVF in L forearm, Heart catheterization FHx: CAD in maternal and paternal family Social: Denies X3 - Review of Systems General: denies: fever/chills, fatigue Eyes: denies: eye pain, vision changes ENT: reports: rhinorrhea. denies: nasal congestion Respiratory: reports: cough, shortness of breath Cardiovascular: reports: edema. denies: chest pain, palpitation Gastrointestinal: denies: nausea, vomiting, diarrhea, constipation Genitourinary: denies: incontinence, dysuria, discharge Skin: reports: lesions. denies: rashes Musculoskeletal: denies: pain, tenderness Neurological: denies: numbness, syncope Psychological: denies: anxiety, depression - Vital signs BP: 176/78, Pulse: 83, Resp: 36, Pain: 0, O2 sat: 100 on (Face mask), Time: 12/19/2020 10:15. Temp: 98.4 (Oral), Time: 12/19/2020 10:18. BP: 140/88, Pulse: 78, Resp: 28, Pain: 0, O2 sat: 96, Time: 12/19/2020 10:40. BP: 162/59, Pulse: 76, Resp: 30, Pain: 0, O2 sat: 98 on (3L Oxygen), Time: 12/19/2020 11:06. Pulse: 74, Resp: 26, O2 sat: 95, Time: 12/19/2020 11:15. BP: 133/40, Pulse: 73, Resp: 24, Pain: 0, O2 sat: 98 on (Bipap), Time: 12/19/2020 11:24. BP: 116/68, Pulse: 71, Resp: 18, Pain: 0, O2 sat: 96 on (Bipap), Time: 12/19/2020 11:42. BP: 110/62, MAP: 78, Pulse: 77, Resp: 20, Pain: 0, Time: 12/19/2020 12:14. O2 sat: 93 on (Bipap), Time: 12/19/2020 12:19. Wt: 79.5 kg - Physical Exam Constitutional: NAD, awake, alert and oriented HEENT: normocephalic and atraumatic, grossly normal hearing -HEENT: L sided blindness Neck: FROM, trachea midline Heart: RRR, normal S1/S2, no murmurs/rubs/gallops -Lungs: BL Crackles to mid-lung field Abdomen: soft, non-tender, bowel sounds present, no masses/distention Musculoskeletal: normal tone, ROM grossly normal Neurological: no focal deficit -Skin: BL LE with 3+ pitting edema, LLE with multiple blisters, roofed and unroofed, weeping serosanguinous fluid Heme/Lymphatic: no unusual bruising or bleeding Psychiatric: normal mood and affect, good judgment and insight, intact recent and remote memory FMR H&P: Results - Labs Result Diagrams: 12/19/20 10:35 12/19/20 10:35 Lab results: WBC 13.6 thou/uL (4.8-10.8) H 12/19/20 10:35 Hgb 12.2 g/dL (12.0-16.0) 12/19/20 10:35 Hct 38.1 % (36.0-47.0) 12/19/20 10:35 MCV 101.0 fL (78.0-98.0) H 12/19/20 10:35 Plt Count 248 thou/uL (130-400) 12/19/20 10:35 Neutrophils % 77.7 % (42.0-75.0) H 12/19/20 10:35 VBG pCO2 53.1 mmHg (40.0-50.0) H 12/19/20 10:39 VBG pO2 55.7 mmHg (35.0-45.0) H 12/19/20 10:39 Sodium 137 mmol/L (136-145) 12/19/20 10:35 Potassium 6.3 mmol/L (3.5-5.1) H 12/19/20 10:35 Chloride 98 mmol/L (98-107) 12/19/20 10:35 Carbon Dioxide 21 mmol/L (23-31) L 12/19/20 10:35 BUN 95 mg/dL (9.8-20.1) H 12/19/20 10:35 Creatinine 9.93 mg/dL (0.6-1.1) H 12/19/20 10:35 Glucose 150 mg/dL (83-110) H 12/19/20 10:35 Lactic Acid 1.7 mmol/L (0.5-2.2) 12/19/20 10:35 Calcium 8.9 mg/dL (7.8-10.44) 12/19/20 10:35 Total Bilirubin 0.8 mg/dL (0.2-1.2) 12/19/20 10:35 AST 21 U/L (5-34) 12/19/20 10:35 ALT 11 U/L (8-55) 12/19/20 10:35 Alkaline Phosphatase 81 U/L (40-110) 12/19/20 10:35 Creatine Kinase 49 U/L (29-168) 12/19/20 10:35 CK-MB (CK-2) 2.5 ng/mL (0-6.6) 12/19/20 10:35 Serum Total Protein 7.7 g/dL (5.8-8.1) 12/19/20 10:35 Albumin 3.9 g/dL (3.4-4.8) 12/19/20 10:35 - EKG Interpretation EKG: Peaked T waves in leads V2-V6, Paced HR of 89, Wide QRS complex, QTc 532 with artifact - Radiology Interpretation Chest x-ray Status: image reviewed by me Additional comment: BL infilatrates in lower lobes concerning for pleural effusions FMR H&P: A/P - Plan 70 yo F here for dyspnea likely 2/2 fluid overload 2/2 missed HD. Acute Hypoxic Respiratory failure likely 2/2 pleural effusions - Per EMS report, O2 sats at 80s when arrived on scene, 90s in EMS - on BiPAP now, wean as respiratory status improves - Dialysis per Dr. Calle - WIL/Flu negative, s/p Rocephin/Azithro in ED - Strict I/O, daily weights ESRD on HD MWF - Potassium 6.1 on admission with evidence of peaked T waves in some leads s/p calcium gluconate in ED - Dialysis per Dr. Calle - Monitor with labs T2DM - A1c pending, not on insulin per last DC summary - Consider Mild SSI with hypoglycemia protocol based on A1c HTN - Home medications Anemia - B12, Folate pending - Chronic, Hgb stable based on previous labs CAD - continue home medications pending med rec CHF - EF 40-45% 06/06/2020 with inferior wall hypokinesis - Continue to monitor fluid status - Strict I/O with Daily weight Code: Full Diet: Renal High protein DVT ppx: heparin GI ppx: none PCP: Dr. Yang, RADIO TIME BU[employer]ER Dispo: Admit IMCU inpatient, eLOS likely >48 hrs. Plan for urgent dialysis today with management pending course post-dialysis. FMR H&P: Upper Level - Plan Date/Time: 12/19/20 1211 Rabia Jones, have evaluated this patient and agree with findings/plan as outlined by manager international resident. Pertinent changes/additions are listed here. 70 yo F w/ PMH of ESRD on M/W/F dialysis, noncompliance, CHF, CAD, T2DM p resented to the ED after missing dialysis for the past week due to weather with 2 days of SOB, nonproductive cough, and rhinorrhea. Patient denies fever/chills or sick contacts. SOB is worse with lying flat. In the ED her potassium was found to be 6.3 with peaked T waves on EKG. CXR showed bilateral pleural effusions. EKG also showed prolonged QR, paced rhythm, and QT prolongation. Patient was fluid overloaded with pleural effusions and BNP >9600. She was given calcium gluconate, and Dr. Calle was consulted and plans to perform urgent dialysis. Patient was started on bipap 2/2 increased work of breathing. Patient met sepsis criteria with tachypnea, and a WBC of 13 and was given azithromycin and Rocephin. On exam, patient appears comfortable on bipap. Lung exam showed inspiratory and expiratory crackles bilateral bases, no rhonchi or wheezing. Cardiac exam no murmurs, rub, or gallop. Lower extremities show 3+ pitting edema with bullae to LLE and stage 1 ulcer to lateral lower leg. #Acute Hypoxic Respiratory Failure #Volume Overload 2/2 Missed dialysis #Noncompliance -Continue bipap, admit to IMCU. Will attempt to wean bipap after urgent dialysis performed today. Appreciate nephros recs. -Patient met sepis criteria and was given Rocephin and azithromycin in the ED. Procal negative. Symptoms likely 2/2 fluid overload rather than infection. Antibiotics discontinued. #Hyperkalemia #Peaked T waves. -K of 6.3, s/p calcium gluconate, urgent dialysis pending. -Repeat EKG after dialysis #Indeterminate trop -Likely NSTEMI type 2 2/2 fluid overload, will trend #HFrEF #Pulmonary artery HTN -Strict I/Os, daily weights, fluid restrict -echo 06/06/20 showed EF 40-45% with inferior wall hypokinesis and PAP elevated to 42 mm Hg #T2DM -Mild SSI, A1C pending Patient medications are at this time unknown, will continue to try to contact POA for medication list. Dispo: Admit to IMCU inpt, LOS >2 midnights. Danilo Marino MD PGY3 Addendum - Attending - Attending Attestation Date/Time: 12/19/20 2671 I personally evaluated the patient and discussed the management with Dr. Irizarry/Ned. I agree with the History, Examination, Assessment and Plan documented above with any addition or exceptions noted below. AHRF 2/2 missed HD. urgent HD per nephro. Bipap for resp support.
[2020-12-19] MEDS ORDERED: Ondansetron PF 4 MG/2 ML Vial ONE (12:13)
[2020-12-19] MEDS ORDERED: Calcium Carbonate 500 MG ChewTAB PO PRN (12:14)
[2020-12-19] MEDS ORDERED: Bisacodyl 5 MG TAB PO PRN (12:14)
[2020-12-19] MEDS ORDERED: Senokot S 8.6-50 MG TAB PO PRN (12:14)
[2020-12-19] MEDS ORDERED: Bisacodyl 10 MG SUPP PR PRN (12:14)
[2020-12-19] MEDS ORDERED: Acetaminophen 650 MG Suppository PR PRN (12:14)
[2020-12-19 12:20] LABS: SARS-CoV-2 NAA Rapid Test Not Detected (NotDetected)
[2020-12-19 14:46] LABS: Hemoglobin A1c 4.9 % (4.0-6.0)
[2020-12-19] MEDS ORDERED: Dextrose 50% Abboject 50 ML SYRINGE SLOW IVP PRN (14:47)
[2020-12-19] MEDS ORDERED: HumaLOG 300 UNITS/3 ML VIAL SC PRN ×2 (14:47)
[2020-12-19] MEDS ORDERED: Dextrose 5% in Water 1,000 ML IV PRN (14:47)
[2020-12-19 15:01] LABS: Troponin I 0.108 ng/mL (< 0.028)
[2020-12-19] MEDS ORDERED: Ondansetron ODT 4 MG TAB ONE (17:59)
[2020-12-19] MEDS: Ondansetron ODT 4 MG TAB PO PRN (18:04)
[2020-12-19] MEDS: Heparin 5,000 UNITS/ML VIAL SC SCH ×2 (18:12→23:40)
[2020-12-19] MEDS ORDERED: Heparin 10,000 UNITS/ 10 ML VIAL ONE (22:57)
[2020-12-19 23:48] LABS: Troponin I 0.314 ng/mL (< 0.028)
[2020-12-20] MEDS ORDERED: hydrOXYzine 25 MG TAB PO SCH (00:50)
[2020-12-20] MEDS ORDERED: Albuterol 200 PUFF (6.7GM INHALER) INH PRN (01:42)
[2020-12-20] MEDS ORDERED: Ondansetron PF 4 MG/2 ML Vial ONE (02:04)
[2020-12-20] MEDS ORDERED: hydrOXYzine 25 MG TAB ONE (02:05)
[2020-12-20] MEDS ORDERED: Ondansetron ODT 4 MG TAB ONE ×3 (02:06→14:28)
[2020-12-20] MEDS: Ondansetron ODT 4 MG TAB PO PRN ×2 (02:11→14:29)
[2020-12-20 02:12] LABS: #Monocytes 0.4 thou/uL (0.11-0.59); #Neutrophils 7.9 thou/uL (1.40-6.50); %Basophils 0.1 % (0.0-1.0); %Eosinophils 0.4 % (0.0-10.0); %Lymphocytes 10.5 % (21.0-51.0); %Monocytes 4.6 % (0.0-10.0); %Neutrophils 84.4 % (42.0-75.0); Hemoglobin 11.2 g/dL (12.0-16.0); Mean Corpuscular HGB CONC 32.2 g/dL (32.0-36.0); Mean Corpuscular Hemoglobin 31.9 pg (27.0-31.0); Mean Corpuscular Volume 99.1 fL (78.0-98.0); Mean Platelet Volume 8.1 fL (7.4-10.4); Platelet Count 197 thou/uL (130-400); RBC Distribution Width 13.6 % (11.5-14.5); Red Blood Cell (RBC) Count 3.52 mill/uL (4.20-5.40); White Blood Cell (WBC) Count 9.3 thou/uL (4.8-10.8)
[2020-12-20 02:41] LABS: Troponin I 0.678 ng/mL (< 0.028)
[2020-12-20 02:49] LABS: Anion Gap 22 mmol/L (10-20); BUN (Urea Nitrogen) 44 mg/dL (9.8-20.1); Calc. Creatinine Clearance 11 mL/min (70-130); Calcium 8.6 mg/dL (7.8-10.44); Carbon Dioxide 22 mmol/L (23-31); Chloride 98 mmol/L (98-107); Glucose 89 mg/dL (83-110); Sodium 137 mmol/L (136-145)
[2020-12-20] MEDS ORDERED: Heparin 25,000 units/D5W 500 ML IVPB SCH (03:00)
[2020-12-20] MEDS ORDERED: Heparin 10,000 UNITS/ 10 ML VIAL SLOW IVP SCH (03:00)
[2020-12-20] MEDS ORDERED: Heparin 25,000 units/D5W 500 ML ONE (04:18)
--- NOTE | 2020-12-20 05:31 | PDOC.FM ---
- Subjective Subjective: Patient feeling well this AM, no acute concerns. Overnight, troponin trended up to 0.6 from 0.1, was started on therapeutic heparin. Patient denies chest pain/SOB. Currently on 3L, uses NC occasionally at home. Denies CP, SOB, N/V. 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 She reports she had a stress test in 2019 that was unremarkable. - Objective MAR Reviewed: Yes Vital Signs & Weight: Weight Weight 79.5 kg Result Diagrams: 12/20/20 02:01 12/20/20 02:01 Phys Exam - Physical Examination Constitutional: NAD Respiratory: no wheezing, no rales, no rhonchi BL crackles in bases Cardiovascular: RRR, no significant murmur, no rub Gastrointestinal: soft, non-tender, no distention mild edema LE BL Neurological: non-focal, moves all 4 limbs Dx/Plan - Plan Plan: 70 yo F here for dyspnea likely 2/2 fluid overload 2/2 missed HD. Acute Hypoxic Respiratory failure likely 2/2 pleural effusions - Per EMS report, O2 sats at 80s when arrived on scene, 90s in EMS - COVID/Flu negative, s/p Rocephin/Azithro in ED - Strict I/O, daily weights - PRN supplemental O2 NSTEMI - Troponin uptrending to 0.678 - Likely Type II 2/2 fluid overload and ESRD - Consider Cardiology consult with significant CAD hx with lack of cardiology records - thx heparin ESRD on HD MWF - Potassium 6.1 on admission with evidence of peaked T waves in some leads s/p calcium gluconate in ED, electrolytes improved s/p HD - Dialysis per Dr. Calle - Monitor with labs HTN - Can restart Home medications Anemia - Chronic, Hgb stable based on previous labs CAD - Hold IMDUR/B blockers pending cardiac workup - restarted ASA/statin CHF - EF 40-45% 06/06/2020 with inferior wall hypokinesis - Continue to monitor fluid status - Strict I/O with Daily weights Hx of T2DM - A1c 4.9 during hospital stay, no accuchecks or SSI Code: Full Diet: Renal High protein-NPO pending possible cardiac workup this AM DVT ppx: heparin-thx GI ppx: none PCP: Dr. Yang, JOURNALISM INTERN Dispo: Admit tele inpatient, eLOS likely >48 hrs. Patient is ED hold at this time. Addendum - Attending - Attending Attestation Date/Time: 12/20/20 2659 I personally evaluated the patient and discussed the management with Dr. Irizarry. I agree with the History, Examination, Assessment and Plan documented above with any addition or exceptions noted below. cards consult for NSTEMI (likely 2/2 demand). HD per nephro. hopefully d/c in the next 24-48 hrs.
[2020-12-20] MEDS ORDERED: Amlodipine 5 MG TAB ONE (08:59)
[2020-12-20] MEDS ORDERED: hydrALAZINE 25 MG TAB PO SCH ×2 (09:00)
[2020-12-20] MEDS: Aspirin 81 mg Enteric Coated Tablet PO SCH (09:05)
--- NOTE | 2020-12-20 11:38 | PRG ---
DATE OF SERVICE: 12/20/2020 SUBJECTIVE: A 70-year-old female being seen for end-stage renal disease. The patient denied nausea, vomiting, or chest pain. OBJECTIVE: GENERAL: The patient is awake and alert. VITAL SIGNS: Afebrile, pulse 76, breathing 16, blood pressure 145/58. HEENT: Head normocephalic and atraumatic. Eyes intact, no ulcers. Nose intact, no ulcers. Ears intact, no ulcers. NECK: Supple. No JVD. CHEST: Symmetrical and clear. CARDIOVASCULAR: Shows S1 and S2, no rub, no murmur. GASTROINTESTINAL: Abdomen is soft, bowel sounds positive. EXTREMITIES: Show no edema or ulcers. SKIN: Shows no rash or petechiae. MUSCULOSKELETAL: Shows no joint swelling or stiffness. GENITOURINARY: Shows no Bell or CVA tenderness. NEUROLOGIC: Motor intact. Cranial nerves intact. LABORATORY DATA: Reviewed. ASSESSMENT AND PLAN: 1. Chronic kidney disease stage 6, plan dialysis. 2. Congestive heart failure, plan dialysis. 3. Hypoxia, plan dialysis. 4. Anemia, stable. 5. Medication based on GFR appropriate. Job ID: [id number]
[2020-12-20] MEDS ORDERED: hydrALAZINE 25 MG TAB ONE (13:15)
[2020-12-20 14:14] LABS: Folate,Hemolysate >620.0 ng/mL (Not Estab.); Hematocrit 31.8 % (34.0-46.6); RBC Folate Test Component Greater than 1950 ng/mL (>498)
[2020-12-20] MEDS: Heparin 5,000 UNITS/ML VIAL SC SCH ×2 (18:27→23:01)
[2020-12-20] MEDS: Carvedilol 25 MG TAB PO SCH (18:27)
--- NOTE | 2020-12-20 19:25 | CON ---
DATE OF CONSULTATION: HISTORY OF PRESENT ILLNESS: This patient is a 70-year-old woman, who presents for evaluation of dyspnea after missing dialysis treatment. The patient has a history of a coronary artery disease. She is status post coronary artery bypass graft surgery. The patient was followed at [facility]. She was admitted here in May of last year with congestive heart failure. She was found to have a decrease in her left ventricular function, which was thought to be maybe secondary to her pacemaker with persistent electronic pacing. The patient's records are not available from [facility]. The patient was in her usual state of health when she presented with increasing dyspnea. She unfortunately missed dialysis treatment due to the extreme weather last week. The patient started having increasing lower extremity swelling. The patient denied having any chest discomfort. PAST MEDICAL HISTORY: 1. Coronary artery disease. 2. Hypertension. 3. Diabetes mellitus. 4. End-stage renal disease. PAST SURGICAL HISTORY: Eye surgery, cholecystectomy, and dialysis catheter placement. ALLERGIES: MORPHINE. FAMILY HISTORY: She is adopted. MEDICATIONS: 1. Aspirin 81 daily. 2. Norvasc 5 daily. 3. Coreg 25 b.i.d. 4. Imdur 30 q.a.m. 5. Crestor 10 at bedtime. 6. Hydralazine 25 mg daily. 7. Renvela 2400 t.i.d. REVIEW OF SYSTEMS: Ten-point system otherwise unremarkable. No history of easy bruising or bleeding. PHYSICAL EXAMINATION: GENERAL: This is a thin woman, in no acute distress. VITAL SIGNS: Blood pressure 145/58. NECK: Showed no jugular venous distention. LUNGS: Have crackles more prominent in the right base. HEART: Regular rate and rhythm with a normal S1 and S2, with a 2/6 holosystolic murmur. ABDOMEN: Nondistended. EXTREMITIES: Showed marked bilateral edema. LABORATORY RESULTS: Sodium 137, potassium 5.0, chloride 98, bicarbonate 22, BUN 44, creatinine 5.8. Troponin was 0.0678. White blood cell count 9.3, hemoglobin 11.2, hematocrit 34.9, platelet count 197. EKG electronic ventricular pacemaker. IMPRESSION: 1. Congestive heart failure, acute on chronic, systolic. 2. History of a cardiomyopathy. 3. History of coronary artery bypass surgery x2. 4. History of pacemaker placement. 5. Probable type 2 myocardial infarction. 6. End-stage renal disease. 7. Dyslipidemia. This patient presents with congestive heart failure after missing dialysis treatments. The patient will be restarted on her medications. The patient's troponin level is slightly elevated, suggestive of a type 2 myocardial infarction. I would recommend restarting the patient on her Coreg. We will repeat the patient's echocardiogram. We will follow this patient with you through her hospitalization. Job ID: [id number] MTDD
[2020-12-20] MEDS: Rosuvastatin 10 MG TAB PO SCH (23:01)
[2020-12-20] MEDS: hydrALAZINE 25 MG TAB PO SCH (23:01)
[2020-12-21 04:49] LABS: #Eosinphils 0.1 thou/uL (0.0-0.7); #Lymphocytes 1.1 thou/uL (1.20-3.40); #Monocytes 0.4 thou/uL (0.11-0.59); #Neutrophils 3.4 thou/uL (1.40-6.50); %Basophils 0.2 % (0.0-1.0); %Eosinophils 1.8 % (0.0-10.0); %Lymphocytes 21.4 % (21.0-51.0); %Monocytes 8.5 % (0.0-10.0); Hemoglobin 10.3 g/dL (12.0-16.0); Mean Corpuscular HGB CONC 31.4 g/dL (32.0-36.0); Mean Corpuscular Hemoglobin 31.6 pg (27.0-31.0); Mean Platelet Volume 8.3 fL (7.4-10.4); Platelet Count 155 thou/uL (130-400); RBC Distribution Width 13.4 % (11.5-14.5); Red Blood Cell (RBC) Count 3.25 mill/uL (4.20-5.40)
[2020-12-21 05:10] LABS: Anion Gap 18 mmol/L (10-20); BUN (Urea Nitrogen) 34 mg/dL (9.8-20.1); Calc. Creatinine Clearance 13 mL/min (70-130); Calcium 8.4 mg/dL (7.8-10.44); Carbon Dioxide 25 mmol/L (23-31); Chloride 99 mmol/L (98-107); Glucose 95 mg/dL (83-110); Potassium 4.3 mmol/L (3.5-5.1); Sodium 138 mmol/L (136-145)
--- NOTE | 2020-12-21 05:50 | PDOC.FM ---
- Subjective Subjective: Patient doing well this AM reports cramping in arms and legs that has resolved. Denies CP, SOB, N/V. No acute events overnight. - Objective MAR Reviewed: Yes Vital Signs & Weight: Vital Signs (12 hours) Temp Pulse Resp BP BP Pulse Ox 12/21/20 04:22 98.0 F 83 20 126/58 L 96 12/21/20 01:00 97.8 F 63 20 128/60 98 12/20/20 23:01 79 12/20/20 21:00 97.9 F 90 20 115/56 L 97 12/20/20 17:57 97.5 F L 79 20 170/74 H 94 L Weight Weight 77.309 kg Result Diagrams: 12/21/20 04:28 12/21/20 04:28 Phys Exam - Physical Examination Constitutional: NAD Respiratory: no wheezing, no rales, no rhonchi, clear to auscultation bilateral Cardiovascular: RRR, no significant murmur, no rub Gastrointestinal: soft, non-tender, no distention, positive bowel sounds Dx/Plan - Plan Plan: 70 yo F here for dyspnea likely 2/2 fluid overload 2/2 missed HD. Acute Hypoxic Respiratory failure likely 2/2 pleural effusions - Per EMS report, O2 sats at 80s when arrived on scene, 90s in EMS - COVID/Flu negative, s/p Rocephin/Azithro in ED - Strict I/O, daily weights - PRN supplemental O2 NSTEMI - Troponin uptrended to 0.678 - Likely Type II 2/2 fluid overload and ESRD - Cardiology, Dr. Avitia consulted, appreciate recommendations-ECHO today ESRD on HD MWF - Potassium 6.1 on admission with evidence of peaked T waves in some leads s/p calcium gluconate in ED, electrolytes improved s/p HD - Dialysis per Dr. Calle - Monitor with labs HTN - Home medications Anemia - Chronic, Hgb stable based on previous labs CAD - Continue home IMDUR/B blockers - restarted ASA/statin CHF - EF 40-45% 06/06/2020 with inferior wall hypokinesis - Continue to monitor fluid status - Strict I/O with Daily weights - Repeat ECHO Hx of T2DM - A1c 4.9 during hospital stay, no accuchecks or SSI Code: Full Diet: Renal High protein, HH DVT ppx: heparin GI ppx: none PCP: Dr. Yang WHIZZER Dispo: Admit tele inpatient, stable, will work towards DC planning. Addendum - Attending - Attending Attestation Date/Time: 12/21/20 1430 I personally evaluated the patient and discussed the management with Dr. Irizarry. I agree with the History, Examination, Assessment and Plan documented above with any addition or exceptions noted below. TTE pending per cardiology. HD per nephro.
[2020-12-21] MEDS: Amlodipine 5 MG TAB PO SCH (08:39)
[2020-12-21] MEDS: Aspirin 81 mg Enteric Coated Tablet PO SCH (08:39)
[2020-12-21] MEDS: hydrALAZINE 25 MG TAB PO SCH ×2 (08:40→21:04)
[2020-12-21] MEDS: Carvedilol 25 MG TAB PO SCH ×2 (08:40→17:47)
[2020-12-21] MEDS: Heparin 5,000 UNITS/ML VIAL SC SCH ×3 (08:41→21:08)
--- NOTE | 2020-12-21 10:09 | PRG ---
DATE OF SERVICE: 12/21/2020 SUBJECTIVE: A 70-year-old female being seen for end-stage renal disease. The patient denied nausea, vomiting or chest pain. PHYSICAL EXAMINATION: General: The patient is awake and alert. Vital Signs: Afebrile, pulse 80, breathing at 16, blood pressure 128/60. HEENT: Head normocephalic and atraumatic. Eyes intact, no ulcers. Nose intact, no ulcers. Ears intact, no ulcers. Neck: Supple. No JVD. Chest: Symmetrical and clear. Cardiovascular: Shows S1 and S2, no rub, no murmur. Gastrointestinal: Abdomen is soft, bowel sounds positive. Extremities: Show no edema or ulcers. Skin: Shows no rash or petechiae. Musculoskeletal: Shows no joint swelling or stiffness. Genitourinary: Shows no Bell or CVA tenderness. Neurologic: Motor intact. Cranial nerves intact. LABORATORY DATA: Hemoglobin 10.3. ASSESSMENT AND PLAN: 1. Chronic kidney disease stage 6, stable. 2. Hypertension with anemia stable. Plan dialysis today. Job ID: [id number]
[2020-12-21] MEDS ORDERED: FLU VACC QS2020-21(65YR UP)/PF 240 MCG/0.7 ML SYRINGE IM ONE (16:30)
[2020-12-21] MEDS: Rosuvastatin 10 MG TAB PO SCH (21:04)
[2020-12-22 04:40] LABS: #Eosinphils 0.2 thou/uL (0.0-0.7); #Monocytes 0.4 thou/uL (0.11-0.59); #Neutrophils 3.5 thou/uL (1.40-6.50); %Basophils 0.1 % (0.0-1.0); %Eosinophils 4.6 % (0.0-10.0); %Lymphocytes 19.1 % (21.0-51.0); %Monocytes 7.8 % (0.0-10.0); %Neutrophils 68.4 % (42.0-75.0); Hemoglobin 9.6 g/dL (12.0-16.0); Mean Corpuscular HGB CONC 31.5 g/dL (32.0-36.0); Mean Platelet Volume 8.2 fL (7.4-10.4); Platelet Count 156 thou/uL (130-400); RBC Distribution Width 13.4 % (11.5-14.5); Red Blood Cell (RBC) Count 2.99 mill/uL (4.20-5.40); White Blood Cell (WBC) Count 5.1 thou/uL (4.8-10.8)
[2020-12-22 05:06] LABS: Anion Gap 10 mmol/L (10-20); BUN (Urea Nitrogen) 22 mg/dL (9.8-20.1); Calc. Creatinine Clearance 17 mL/min (70-130); Calcium 8.1 mg/dL (7.8-10.44); Carbon Dioxide 32 mmol/L (23-31); Chloride 100 mmol/L (98-107); Glucose 107 mg/dL (83-110); Potassium 3.9 mmol/L (3.5-5.1); Sodium 138 mmol/L (136-145)
--- NOTE | 2020-12-22 07:36 | PDOC.FM ---
- Subjective Subjective: Patient denied ECHO yesterday because she thought it was a surgery and got confused. She reports she is happy to do it today. Overall no acute complaints. Has not had bowel movement for 2 days. Denies SOB, abdominal pain, N/V. - Objective MAR Reviewed: Yes Vital Signs & Weight: Vital Signs (12 hours) Temp Pulse Resp BP Pulse Ox 12/22/20 05:00 98.5 F 72 18 125/60 96 12/22/20 01:00 97.6 F 74 18 119/76 97 12/21/20 21:04 69 12/21/20 21:00 97.7 F 69 22 H 132/60 95 12/21/20 20:00 96 Weight Admit Weight 79.5 kg Weight 78.925 kg I&O: 12/21/20 12/22/20 12/23/20 06:59 06:59 06:59 Intake Total 720 Output Total 3000 Balance -2280 Result Diagrams: 12/22/20 04:28 12/22/20 04:28 Phys Exam - Physical Examination Constitutional: NAD Sitting up in chair, in good spirits Respiratory: no wheezing, no rales, no rhonchi mild crackles in BL bases Cardiovascular: RRR, no significant murmur, no rub Gastrointestinal: soft, non-tender, no distention, positive bowel sounds 2+ pitting edema in BL LE Dx/Plan - Plan Plan: 70 yo F here for dyspnea likely 2/2 fluid overload 2/2 missed HD. Acute Hypoxic Respiratory failure likely 2/2 pleural effusions - Per EMS report, O2 sats at 80s when arrived on scene, 90s in EMS - COVID/Flu negative, s/p Rocephin/Azithro in ED - Strict I/O, daily weights - PRN supplemental O2 NSTEMI - Troponin uptrended to 0.678 - Likely Type II 2/2 fluid overload and ESRD - Cardiology, Dr. Avitia consulted, appreciate recommendations-ECHO today ESRD on HD MWF - Potassium 6.1 on admission with evidence of peaked T waves in some leads s/p calcium gluconate in ED, electrolytes improved s/p HD - Dialysis per Dr. Calle - Monitor with labs HTN - Home medications Anemia - Chronic, Hgb stable based on previous labs CAD - Continue home IMDUR/B blockers - restarted ASA/statin CHF - EF 40-45% 06/06/2020 with inferior wall hypokinesis - Continue to monitor fluid status - Strict I/O with Daily weights - Repeat ECHO Hx of T2DM - A1c 4.9 during hospital stay, no accuchecks or SSI Constipation Encouraged patient to ask for stool softeners if needed. Consider scheduling dose if problem persists Code: Full Diet: Renal High protein, HH DVT ppx: heparin GI ppx: none PCP: Dr. Yang CORPORATE REAL ESTATE MANAGER Dispo: Admit tele inpatient, stable, will work towards DC planning. Addendum - Attending - Attending Attestation Date/Time: 12/22/20 1981 I personally evaluated the patient and discussed the management with Dr. Irizarry. I agree with the History, Examination, Assessment and Plan documented above with any addition or exceptions noted below. working on rehab placement. TTE taken but not read. nearing d/c.
[2020-12-22] MEDS: Aspirin 81 mg Enteric Coated Tablet PO SCH (08:49)
[2020-12-22] MEDS: Amlodipine 5 MG TAB PO SCH (08:49)
[2020-12-22] MEDS: hydrALAZINE 25 MG TAB PO SCH ×2 (08:49→21:52)
[2020-12-22] MEDS: Carvedilol 25 MG TAB PO SCH ×2 (08:49→17:14)
[2020-12-22] MEDS: Heparin 5,000 UNITS/ML VIAL SC SCH ×3 (08:53→21:53)
--- NOTE | 2020-12-22 12:20 | PRG ---
DATE OF SERVICE: 12/22/2020 SUBJECTIVE: A 70-year-old female, being seen for end-stage renal disease. The patient denied nausea, vomiting, or chest pain. PHYSICAL EXAMINATION: GENERAL: The patient is awake and alert. Vital Signs: Afebrile, pulse 65, breathing 16, blood pressure 129/59. HEENT: Head normocephalic and atraumatic. Eyes intact, no ulcers. Nose intact, no ulcers. Ears intact, no ulcers. Neck: Supple. No JVD. Chest: Symmetrical and clear. Cardiovascular: Shows S1 and S2, no rub, no murmur. Gastrointestinal: Abdomen is soft, bowel sounds positive. Extremities: Have edema. Skin: Shows no rash or petechiae. Musculoskeletal: Shows no joint swelling or stiffness. Genitourinary: Shows no Bell or CVA tenderness. Neurologic: Motor intact. Cranial nerves intact. LABORATORY DATA: Reviewed. ASSESSMENT: 1. Stage 6 chronic kidney disease. Plan dialysis. 2. Hypertension with anemia, stable. Compliance was discussed. The patient will need 4 to 5 kg of lowering of dry weight. Job ID: [id number]
[2020-12-22] MEDS: Rosuvastatin 10 MG TAB PO SCH (21:52)
--- NOTE | 2020-12-23 05:42 | PDOC.FM ---
- Subjective Subjective: Patient feeling well this AM, no acute concerns, no acute events overnight. Denies CP, SOB, N/V. - Objective MAR Reviewed: Yes Vital Signs & Weight: Vital Signs (12 hours) Temp Pulse Resp BP Pulse Ox 12/23/20 04:44 96 12/23/20 01:00 97.8 F 63 18 127/73 96 12/22/20 21:52 62 12/22/20 21:00 98.6 F 77 18 118/60 97 12/22/20 20:00 97 Weight Admit Weight 79.5 kg Weight 78.925 kg I&O: 12/21/20 12/22/20 12/23/20 06:59 06:59 06:59 Intake Total 720 1070 Output Total 3000 Balance -2280 1070 Result Diagrams: 12/23/20 09:45 12/23/20 09:45 Phys Exam - Physical Examination Constitutional: NAD Resting comfortably Respiratory: no wheezing, no rales, no rhonchi Mild bilateral crackles in bases Cardiovascular: RRR, no significant murmur, no rub Gastrointestinal: soft, non-tender, no distention, positive bowel sounds 2+ edema in BL LE Dx/Plan - Plan Plan: 70 yo F here for dyspnea likely 2/2 fluid overload 2/2 missed HD. Acute Hypoxic Respiratory failure likely 2/2 pleural effusions - Per EMS report, O2 sats at 80s when arrived on scene, 90s in EMS - COVID/Flu negative, s/p Rocephin/Azithro in ED - Strict I/O, daily weights - PRN supplemental O2 - Resolved w/ dialysis NSTEMI - Troponin uptrended to 0.678 - Likely Type II 2/2 fluid overload and ESRD - Cardiology, Dr. Avitia consulted, appreciate recommendations - ECHO with EF of 35-40% - Lipid panel this AM ESRD on HD MWF - Potassium 6.1 on admission with evidence of peaked T waves in some leads s/p calcium gluconate in ED, electrolytes improved s/p HD - Dialysis per Dr. Calle - Monitor with labs HTN - Home medications Anemia - Chronic, monitor this AM CAD - Continue home IMDUR/B blockers - restarted ASA/statin CHF - EF 40-45% 06/06/2020 with inferior wall hypokinesis - Continue to monitor fluid status - Strict I/O with Daily weights - Repeat ECHO Hx of T2DM - A1c 4.9 during hospital stay, no accuchecks or SSI Constipation Encouraged patient to ask for stool softeners if needed. Consider scheduling dose if problem persists Code: Full Diet: Renal High protein, HH DVT ppx: heparin GI ppx: none PCP: Dr. Yang, MEDICAL APPLIANCE MAKER Dispo: Admit tele inpatient, stable, will work towards DC planning. Addendum - Attending - Attending Attestation Date/Time: 12/23/20 1151 I personally evaluated the patient and discussed the management with Dr. Irizarry. I agree with the History, Examination, Assessment and Plan documented above with any addition or exceptions noted below. working toward d/c.
[2020-12-23] MEDS: Aspirin 81 mg Enteric Coated Tablet PO SCH (07:37)
[2020-12-23] MEDS: Heparin 5,000 UNITS/ML VIAL SC SCH ×3 (07:38→21:26)
[2020-12-23] MEDS: Carvedilol 25 MG TAB PO SCH ×2 (09:42→18:00)
[2020-12-23] MEDS: Amlodipine 5 MG TAB PO SCH (09:43)
[2020-12-23] MEDS: hydrALAZINE 25 MG TAB PO SCH ×2 (09:43→21:26)
[2020-12-23 10:08] LABS: #Eosinphils 0.3 thou/uL (0.0-0.7); #Lymphocytes 1.1 thou/uL (1.20-3.40); #Monocytes 0.4 thou/uL (0.11-0.59); #Neutrophils 4.2 thou/uL (1.40-6.50); %Basophils 0.4 % (0.0-1.0); %Eosinophils 5.3 % (0.0-10.0); %Lymphocytes 17.8 % (21.0-51.0); %Monocytes 6.2 % (0.0-10.0); %Neutrophils 70.2 % (42.0-75.0); Hemoglobin 10.4 g/dL (12.0-16.0); Mean Corpuscular HGB CONC 32.1 g/dL (32.0-36.0); Platelet Count 180 thou/uL (130-400); RBC Distribution Width 13.4 % (11.5-14.5); Red Blood Cell (RBC) Count 3.14 mill/uL (4.20-5.40)
[2020-12-23] MEDS: Ondansetron ODT 4 MG TAB PO PRN (10:13)
[2020-12-23] MEDS ORDERED: hydrOXYzine 25 MG TAB PO PRN ×2 (10:21→10:23)
[2020-12-23] MEDS ORDERED: hydrOXYzine 10 MG TAB PO PRN (10:26)
[2020-12-23 10:37] LABS: Anion Gap 17 mmol/L (10-20); BUN (Urea Nitrogen) 35 mg/dL (9.8-20.1); Calc. Creatinine Clearance 12 mL/min (70-130); Calcium 8.4 mg/dL (7.8-10.44); Carbon Dioxide 27 mmol/L (23-31); Chloride 97 mmol/L (98-107); Glucose 108 mg/dL (83-110); Potassium 4.2 mmol/L (3.5-5.1); Sodium 137 mmol/L (136-145)
--- NOTE | 2020-12-23 10:37 | PRG ---
DATE OF SERVICE: 12/23/2020 SUBJECTIVE: A 70-year-old female being seen for end-stage renal disease. The patient denies nausea, vomiting, or chest pain. OBJECTIVE: General: The patient is awake and alert. Vital Signs: Afebrile, pulse 65, breathing at 16, blood pressure 135/60. HEENT: Head normocephalic and atraumatic. Eyes intact, no ulcers. Nose intact, no ulcers. Ears intact, no ulcers. Neck: Supple. No JVD. Chest: Symmetrical and clear. Cardiovascular: Shows S1 and S2, no rub, no murmur. Gastrointestinal: Abdomen is soft, bowel sounds positive. Extremities: Show no edema or ulcers. Skin: Shows no rash or petechiae. Musculoskeletal: Shows no joint swelling or stiffness. Genitourinary: Shows no Bell or CVA tenderness. Neurologic: Motor intact. Cranial nerves intact. LABORATORY DATA: Labs reviewed. ASSESSMENT AND PLAN: Stage 6 chronic kidney disease, stable. Hypertension, stable. Anemia, stable. Medication based on GFR appropriate. Job ID: [id number]
[2020-12-23] MEDS: Rosuvastatin 10 MG TAB PO SCH (21:27)
[2020-12-24 04:47] LABS: #Basophils 0.1 thou/uL (0.0-0.2); #Eosinphils 0.2 thou/uL (0.0-0.7); #Monocytes 0.3 thou/uL (0.11-0.59); #Neutrophils 3.6 thou/uL (1.40-6.50); %Eosinophils 4.2 % (0.0-10.0); %Lymphocytes 19.5 % (21.0-51.0); %Neutrophils 69.2 % (42.0-75.0); Hemoglobin 9.7 g/dL (12.0-16.0); Mean Corpuscular HGB CONC 31.7 g/dL (32.0-36.0); Mean Corpuscular Hemoglobin 32.1 pg (27.0-31.0); Platelet Count 171 thou/uL (130-400); RBC Distribution Width 13.4 % (11.5-14.5); Red Blood Cell (RBC) Count 3.03 mill/uL (4.20-5.40); White Blood Cell (WBC) Count 5.3 thou/uL (4.8-10.8)
[2020-12-24 05:09] LABS: Anion Gap 13 mmol/L (10-20); BUN (Urea Nitrogen) 22 mg/dL (9.8-20.1); Calc. Creatinine Clearance 18 mL/min (70-130); Calcium 8.4 mg/dL (7.8-10.44); Carbon Dioxide 28 mmol/L (23-31); Chloride 99 mmol/L (98-107); Glucose 104 mg/dL (83-110); Potassium 4.3 mmol/L (3.5-5.1); Sodium 136 mmol/L (136-145)
--- NOTE | 2020-12-24 05:31 | PDOC.FM ---
- Subjective Subjective: Patient feels well this morning. She states she is eating/drinking well, denies pain. She continues to work with PTAnish DEL. - Objective Vital Signs & Weight: Vital Signs (12 hours) Temp Pulse Resp BP BP Pulse Ox 12/24/20 03:14 99 12/24/20 01:20 98.3 F 24 H 139/63 60 L 12/23/20 19:25 98.2 F 62 18 156/67 H 96 Weight Admit Weight 79.5 kg Weight 74.077 kg I&O: 12/22/20 12/23/20 12/24/20 06:59 06:59 06:59 Intake Total 720 1070 Output Total 3000 Balance -2280 1070 Result Diagrams: 12/24/20 04:24 12/24/20 04:24 Phys Exam - Physical Examination Constitutional: NAD Respiratory: no wheezing, clear to auscultation bilateral Cardiovascular: RRR Gastrointestinal: soft, non-tender, no distention, positive bowel sounds Musculoskeletal: pulses present trace BLE edema Neurological: non-focal, moves all 4 limbs Psychiatric: normal affect Skin: normal turgor, cap refill <2 seconds Deviation from normal: dressing over LE rash Dx/Plan - Plan Plan: Acute Hypoxic Respiratory failure 2/2 fluid overload from missed dialysis, resolved - Per EMS report O2 sats at 80s when arrived on scene. COVID/Flu negative, s/p Rocephin/Azithro in ED - Fluid restrict, Monitor Strict I/O, daily weights - Currently on 1L BNC, uses 2 at home - Awaiting placement ESRD on HD MWF - Initial potassium 6.1 on admission with evidence of peaked T waves, s/p calcium gluconate in ED, electrolytes improved s/p HD - Dialysis per Dr. Alva molina NSTEMI type 2 - Likely Type II 2/2 fluid overload and ESRD - Cardiology, Dr. Avitia consulted, appreciate recommendations - ECHO with EF of 35-40% HTN - Home medications Anemia - Chronic CAD - Continue home IMDUR/B blockers - restarted ASA/statin HFrEF - EF 40-45% 06/06/2020 with inferior wall hypokinesis; repeat 12/22/20 EF 35-40% - Continue to monitor fluid status - Strict I/O with Daily weights Hx of T2DM - A1C 4.9, diet controlled Constipation,resolved Code: Full Diet: Renal High protein, HH DVT ppx: heparin GI ppx: none PCP: Dr. Yang INFORMATION ASSISTANT Dispo: Admit tele inpatient, stable, awaiting placement. Addendum - Attending - Attending Attestation Date/Time: 12/24/20 0256 I personally evaluated the patient and discussed the management with Dr. Marino. I agree with the History, Examination, Assessment and Plan documented above with any addition or exceptions noted below. placement pending.
[2020-12-24] MEDS: Heparin 5,000 UNITS/ML VIAL SC SCH ×3 (09:07→22:49)
[2020-12-24] MEDS: Amlodipine 5 MG TAB PO SCH (09:08)
[2020-12-24] MEDS: hydrALAZINE 25 MG TAB PO SCH ×2 (09:08→22:50)
[2020-12-24] MEDS: Aspirin 81 mg Enteric Coated Tablet PO SCH (09:08)
[2020-12-24] MEDS: Carvedilol 25 MG TAB PO SCH ×2 (09:09→16:37)
--- NOTE | 2020-12-24 10:28 | PRG ---
DATE OF SERVICE: 12/24/2020 SUBJECTIVE: A 70-year-old female being seen for end-stage renal disease. The patient denied nausea, vomiting, or chest pain. OBJECTIVE: GENERAL: The patient is awake and alert. VITAL SIGNS: Reviewed. HEENT: Head normocephalic and atraumatic. Eyes intact, no ulcers. Nose intact, no ulcers. Ears intact, no ulcers. NECK: Supple. No JVD. CHEST: Symmetrical and clear. CARDIOVASCULAR: Shows S1 and S2, no rub, no murmur. GASTROINTESTINAL: Abdomen is soft, bowel sounds positive. EXTREMITIES: Show no edema or ulcers. SKIN: Shows no rash or petechiae. MUSCULOSKELETAL: Shows no joint swelling or stiffness. GENITOURINARY: Shows no Bell or CVA tenderness. NEUROLOGIC: Motor intact. Cranial nerves intact. LABORATORY DATA: Reviewed. ASSESSMENT AND PLAN: 1. Stage 6 chronic kidney disease, plan dialysis. 2. Hypertension, stable. 3. Anemia, stable. Medication based on GFR appropriate. Job ID: [id number]
--- NOTE | 2020-12-24 16:37 | PDOC.CPN ---
- Subjective Date: 12/24/20 Time: 16:34 Interval history: She is doing well. Breathing close to baseline. - Review of Systems General: denies: fever/chills, weight/appetite/sleep changes, night sweats, fatigue Respiratory: reports: exercise intolerance. denies: cough, congestion, shortness of breath Cardiovascular: denies: chest pain, palpitation, edema, paroxysmal nocturnal dyspnea, orthopnea Gastrointestinal: denies: nausea, vomiting, diarrhea, constipation, abd pain, GI bleeding Musculoskeletal: denies: pain, tenderness, stiffness, swelling, arth ritis/arthralgias Neurological: denies: numbness, syncope, seizure, weakness - Objective Allergies/Adverse Reactions: Allergies Allergy/AdvReac Type Severity Reaction Status Date / Time morphine Allergy Verified 12/19/20 16:29 Visit Medications: Current Medications Acetaminophen (Acetaminophen 325 Mg Tab) 650 mg PO Q4H PRN PRN Reason: Headache/Fever/Mild Pain (1-3) Acetaminophen (Acetaminophen 650 Mg Suppository) 650 mg TX Q4H PRN PRN Reason: Headache/Fever/Mild Pain (1-3) Albuterol Sulfate (Albuterol 200 Puff (6.7gm Inhaler)) 2 puff INH Q6H PRN PRN Reason: WHEEZING/DIFF BREATHING Amlodipine Besylate (Amlodipine 5 Mg Tab) 5 mg PO DAILY [facility] Last Admin: 12/24/20 09:08 Dose: 5 mg Documented by: Aspirin (Aspirin 81 Mg Enteric Coated Tablet) 81 mg PO DAILY [facility] Last Admin: 12/24/20 09:08 Dose: 81 mg Documented by: Bisacodyl (Bisacodyl 5 Mg Tab) 10 mg PO DAILYPRN PRN PRN Reason: Constipation Bisacodyl (Bisacodyl 10 Mg Supp) 10 mg TX DAILYPRN PRN PRN Reason: Constipation Calcium Carbonate (Calcium Carbonate 500 Mg Chewtab) 1,000 mg PO Q4H PRN PRN Reason: Heartburn or Indigestion Carvedilol (Carvedilol 25 Mg Tab) 25 mg PO BID-[facility] Last Admin: 12/24/20 09:09 Dose: 25 mg Documented by: Heparin Sodium (Porcine) (Heparin 5,000 Units/Ml Vial) 5,000 units SC TID [facility] Last Admin: 12/24/20 15:21 Dose: 5,000 units Documented by: Hydralazine HCl (Hydralazine 25 Mg Tab) 25 mg PO BID [facility] Last Admin: 12/24/20 09:08 Dose: 25 mg Documented by: Hydroxyzine HCl (Hydroxyzine 10 Mg Tab) 10 mg PO Q8H PRN PRN Reason: ANXIETY Isosorbide Mononitrate (Isosorbide Mononitrate Er 30 Mg Tab) 30 mg PO DAILY [facility] Last Admin: 12/24/20 09:08 Dose: 30 mg Documented by: Ondansetron HCl (Ondansetron Odt 4 Mg Tab) 4 mg PO Q6H PRN PRN Reason: Nausea/Vomiting Last Admin: 12/23/20 10:13 Dose: 4 mg Documented by: Rosuvastatin Calcium (Rosuvastatin 10 Mg Tab) 10 mg PO [facility] Last Admin: 12/23/20 21:27 Dose: 10 mg Documented by: Senna/Docusate Sodium (Senokot S 8.6-50 Mg Tab) 2 tab PO BIDPRN PRN PRN Reason: Constipation Vital Signs & Weight: Vital Signs Temp Pulse Resp BP BP Pulse Ox 12/24/20 15:18 97.9 F 67 19 138/68 96 12/24/20 11:39 97.8 F 76 16 140/62 98 12/24/20 09:08 64 12/24/20 09:04 97.6 F 64 20 127/61 97 Admit Weight 175 lb 4.272 oz Weight 163 lb 5 oz - Physical Exam General: alert & oriented x3 HEENT: mucus membranes moist Neck: supple neck Cardiac: regular rate and rhythm Lungs: clear to auscultation Neuro: grossly intact Abdomen: active bowel sounds Extremities: no edema Skin: clear Musculoskeletal: no pain - Labs Result Diagrams: 12/24/20 04:24 12/24/20 04:24 Troponin/CKMB CK-MB (CK-2) 2.5 ng/mL (0-6.6) 12/19/20 10:35 Troponin I 0.678 ng/mL (< 0.028) H* 12/20/20 02:01 - Telemetry Sinus rhythms and dysrhythmias: other (V paced.) - Assessment/Plan Assessment/Plan: 1. Acute on chronic systolic heart failure 2a to missing dialysis 2. ESRD 3. HTN 4. DM 5. Ischemic Dilated CM Ef at 40% 6. Hx of CABG PLAN: - CV stable. - Awaiting Rehab bed.
[2020-12-24] MEDS: Rosuvastatin 10 MG TAB PO SCH (22:50)
[2020-12-25] MEDS: Guaifenesin DM 100-10/5 ML UDCUP PO PRN ×2 (01:42→23:52)
[2020-12-25 04:48] LABS: #Eosinphils 0.2 thou/uL (0.0-0.7); #Lymphocytes 1.1 thou/uL (1.20-3.40); #Monocytes 0.3 thou/uL (0.11-0.59); #Neutrophils 3.7 thou/uL (1.40-6.50); %Basophils 0.6 % (0.0-1.0); %Eosinophils 3.6 % (0.0-10.0); %Lymphocytes 20.5 % (21.0-51.0); %Monocytes 6.4 % (0.0-10.0); Hemoglobin 9.5 g/dL (12.0-16.0); Mean Corpuscular HGB CONC 33.1 g/dL (32.0-36.0); Mean Corpuscular Hemoglobin 33.6 pg (27.0-31.0); Mean Platelet Volume 7.9 fL (7.4-10.4); Platelet Count 154 thou/uL (130-400); RBC Distribution Width 13.2 % (11.5-14.5); Red Blood Cell (RBC) Count 2.83 mill/uL (4.20-5.40); White Blood Cell (WBC) Count 5.4 thou/uL (4.8-10.8)
[2020-12-25 05:06] LABS: Anion Gap 15 mmol/L (10-20); BUN (Urea Nitrogen) 36 mg/dL (9.8-20.1); Calc. Creatinine Clearance 21 mL/min (70-130); Calcium 8.4 mg/dL (7.8-10.44); Carbon Dioxide 28 mmol/L (23-31); Chloride 98 mmol/L (98-107); Glucose 105 mg/dL (83-110); Potassium 4.7 mmol/L (3.5-5.1); Sodium 136 mmol/L (136-145)
--- NOTE | 2020-12-25 07:23 | PDOC.FM ---
- Subjective Subjective: Patient asleep this morning. NAEO. - Objective Vital Signs & Weight: Vital Signs (12 hours) Temp Pulse Resp BP BP Pulse Ox 12/25/20 04:00 98.8 F 71 22 H 150/63 H 91 L 12/25/20 03:26 95 12/24/20 22:50 66 137/61 12/24/20 20:00 98.9 F 66 28 H 137/61 95 Weight Admit Weight 79.5 kg Weight 120.004 kg I&O: 12/24/20 12/25/20 12/26/20 06:59 06:59 06:59 Intake Total 600 Output Total 0 Balance 600 Result Diagrams: 12/25/20 04:07 12/25/20 04:07 Phys Exam - Physical Examination Constitutional: NAD Respiratory: no wheezing, clear to auscultation bilateral Cardiovascular: RRR, no significant murmur Gastrointestinal: soft, non-tender Musculoskeletal: no edema, pulses present Neurological: non-focal Skin: normal turgor, cap refill <2 seconds Deviation from normal: bandage present over LLE stage 1 ulcer lateral leg Dx/Plan - Plan Plan: Acute Hypoxic Respiratory failure 2/2 fluid overload from missed dialysis, resolved - Per EMS report O2 sats at 80s when arrived on scene. COVID/Flu negative, s/p Rocephin/Azithro in ED - Currently on 1L BNC, uses 2 at home - Awaiting placement ESRD on HD MWF - Initial potassium 6.1 on admission with evidence of peaked T waves, s/p calcium gluconate in ED, electrolytes improved s/p HD - Dialysis per Dr. Alva molina NSTEMI type 2 - Likely Type II 2/2 fluid overload and ESRD - Cardiology, Dr. Avitia consulted, appreciate recommendations - ECHO with EF of 35-40% HTN - Home medications Anemia - Chronic CAD - Continue home IMDUR/B blockers - restarted ASA/statin HFrEF - EF 40-45% 06/06/2020 with inferior wall hypokinesis; repeat 12/22/20 EF 35-40% - Continue to monitor fluid status Hx of T2DM - A1C 4.9, diet controlled Constipation,resolved Code: Full Diet: Renal High protein, HH DVT ppx: heparin GI ppx: none PCP: Dr. Yang, [employer] Dispo: Patient is ready for discharge as soon as rehab bed available. Addendum - Attending - Attending Attestation Date/Time: 12/25/20 3063 I personally evaluated the patient and discussed the management with Dr. Marino. I agree with the History, Examination, Assessment and Plan documented above with any addition or exceptions noted below. d/c once placement arranged.
[2020-12-25] MEDS: Heparin 5,000 UNITS/ML VIAL SC SCH ×3 (08:28→21:01)
[2020-12-25] MEDS: Aspirin 81 mg Enteric Coated Tablet PO SCH (08:29)
[2020-12-25] MEDS: hydrALAZINE 25 MG TAB PO SCH ×2 (08:29→21:02)
[2020-12-25] MEDS: Carvedilol 25 MG TAB PO SCH ×2 (08:29→16:19)
[2020-12-25] MEDS: Amlodipine 5 MG TAB PO SCH (08:29)
--- NOTE | 2020-12-25 11:56 | PRG ---
DATE OF SERVICE: 12/25/2020 SUBJECTIVE: A 70-year-old female, being seen for end-stage renal disease. The patient denied nausea, vomiting, or chest pain. PHYSICAL EXAMINATION: General: The patient is awake and alert. Vital Signs: Reviewed. HEENT: Head normocephalic and atraumatic. Eyes intact, no ulcers. Nose intact, no ulcers. Ears intact, no ulcers. Neck: Supple. No JVD. Chest: Symmetrical and clear. Cardiovascular: Shows S1 and S2, no rub, no murmur. Gastrointestinal: Abdomen is soft, bowel sounds positive. Extremities: Show no edema or ulcers. Skin: Shows no rash or petechiae. Musculoskeletal: Shows no joint swelling or stiffness. Genitourinary: Shows no Bell or CVA tenderness. Neurologic: Motor intact. Cranial nerves intact. LABORATORY DATA: Reviewed. ASSESSMENT AND PLAN: 1. Stage 6 chronic kidney disease, continue hemodialysis. 2. Hypertension, stable. 3. Anemia, stable. 4. Medication based on GFR, appropriate. Job ID: [id number]
--- NOTE | 2020-12-25 16:43 | PDOC.CPN ---
- Subjective Date: 12/25/20 Time: 16:42 Interval history: No new issues. Very SOB when working with PT and has a lot of joint pains mostly her knees when walking. - Review of Systems General: denies: fever/chills, weight/appetite/sleep changes, night sweats, fatigue Respiratory: reports: shortness of breath, exercise intolerance. denies: cough, congestion Cardiovascular: denies: chest pain, palpitation, edema, paroxysmal nocturnal dyspnea, orthopnea Gastrointestinal: denies: nausea, vomiting, diarrhea, constipation, abd pain, GI bleeding Musculoskeletal: reports: pain. denies: tenderness, stiffness, swelling, arthritis/arthralgias Neurological: denies: numbness, syncope, seizure, weakness - Objective Allergies/Adverse Reactions: Allergies Allergy/AdvReac Type Severity Reaction Status Date / Time morphine Allergy Verified 12/19/20 16:29 Visit Medications: Current Medications Acetaminophen (Acetaminophen 325 Mg Tab) 650 mg PO Q4H PRN PRN Reason: Headache/Fever/Mild Pain (1-3) Acetaminophen (Acetaminophen 650 Mg Suppository) 650 mg SC Q4H PRN PRN Reason: Headache/Fever/Mild Pain (1-3) Albuterol Sulfate (Albuterol 200 Puff (6.7gm Inhaler)) 2 puff INH Q6H PRN PRN Reason: WHEEZING/DIFF BREATHING Amlodipine Besylate (Amlodipine 5 Mg Tab) 5 mg PO DAILY [facility] Last Admin: 12/25/20 08:29 Dose: 5 mg Documented by: Aspirin (Aspirin 81 Mg Enteric Coated Tablet) 81 mg PO DAILY [facility] Last Admin: 12/25/20 08:29 Dose: 81 mg Documented by: Bisacodyl (Bisacodyl 5 Mg Tab) 10 mg PO DAILYPRN PRN PRN Reason: Constipation Bisacodyl (Bisacodyl 10 Mg Supp) 10 mg SC DAILYPRN PRN PRN Reason: Constipation Calcium Carbonate (Calcium Carbonate 500 Mg Chewtab) 1,000 mg PO Q4H PRN PRN Reason: Heartburn or Indigestion Carvedilol (Carvedilol 25 Mg Tab) 25 mg PO BID[facility] Last Admin: 12/25/20 16:19 Dose: 25 mg Documented by: Guaifenesin/Dextromethorphan (Guaifenesin Dm 100-10/5 Ml Udcup) 15 ml PO Q4H PRN PRN Reason: Cough Last Admin: 12/25/20 01:42 Dose: 15 ml Documented by: Heparin Sodium (Porcine) (Heparin 5,000 Units/Ml Vial) 5,000 units SC TID [facility] Last Admin: 12/25/20 15:24 Dose: 5,000 units Documented by: Hydralazine HCl (Hydralazine 25 Mg Tab) 25 mg PO BID [facility] Last Admin: 12/25/20 08:29 Dose: 25 mg Documented by: Hydroxyzine HCl (Hydroxyzine 10 Mg Tab) 10 mg PO Q8H PRN PRN Reason: ANXIETY Isosorbide Mononitrate (Isosorbide Mononitrate Er 30 Mg Tab) 30 mg PO DAILY [facility] Last Admin: 12/25/20 08:29 Dose: 30 mg Documented by: Ondansetron HCl (Ondansetron Odt 4 Mg Tab) 4 mg PO Q6H PRN PRN Reason: Nausea/Vomiting Last Admin: 12/23/20 10:13 Dose: 4 mg Documented by: Rosuvastatin Calcium (Rosuvastatin 10 Mg Tab) 10 mg PO [facility] Last Admin: 12/24/20 22:50 Dose: 10 mg Documented by: Senna/Docusate Sodium (Senokot S 8.6-50 Mg Tab) 2 tab PO BIDPRN PRN PRN Reason: Constipation Vital Signs & Weight: Vital Signs Temp Pulse Pulse Pulse Resp BP BP 12/25/20 15:22 97.3 F L 74 20 12/25/20 15:19 77 72 158/67 H 136/60 12/25/20 12:00 97.3 F L 63 18 12/25/20 08:29 74 12/25/20 08:00 97.2 F L 74 18 BP BP Pulse Ox 12/25/20 15:22 136/60 93 L 12/25/20 15:19 12/25/20 12:00 129/61 96 12/25/20 08:29 12/25/20 08:00 143/60 H 96 Admit Weight 175 lb 4.272 oz Weight 264 lb 9 oz - Physical Exam General: alert & oriented x3 HEENT: mucus membranes moist Neck: supple neck Cardiac: regular rate and rhythm Lungs: clear to auscultation Neuro: grossly intact Abdomen: active bowel sounds Extremities: no edema Skin: clear Musculoskeletal: no pain - Labs Result Diagrams: 12/25/20 04:07 12/25/20 04:07 Troponin/CKMB CK-MB (CK-2) 2.5 ng/mL (0-6.6) 12/19/20 10:35 Troponin I 0.678 ng/mL (< 0.028) H* 12/20/20 02:01 - Telemetry Sinus rhythms and dysrhythmias: other (AV paced) - Assessment/Plan Assessment/Plan: 1. Acute on chronic systolic heart failure 2a to missing dialysis 2. ESRD 3. HTN 4. DM 5. Ischemic Dilated CM EF at 40% 6. Hx of CABG PLAN: - CV stable. - PT as tolerated - Rehab when bed available.
[2020-12-25] MEDS: Rosuvastatin 10 MG TAB PO SCH (21:01)
[2020-12-25] MEDS: Acetaminophen 325 MG TAB PO PRN (23:52)
[2020-12-26] MEDS: Acetaminophen 325 MG TAB PO PRN ×3 (05:16→20:50)
--- NOTE | 2020-12-26 06:09 | PDOC.FM ---
- Subjective Subjective: Patient doing well this AM. Reported abdominal pain earlier that improved after BM. Had multiple BMs yesterday with one being loose. Patient otherwise with no acute concerns. Denies CP, palpitations, N/V. Endorses shortness of breath that improved with AM nebulizer. - Objective MAR Reviewed: Yes Vital Signs & Weight: Vital Signs (12 hours) Temp Pulse Resp BP Pulse Ox 12/26/20 04:26 92 L 12/25/20 21:02 70 12/25/20 19:49 98.2 F 70 20 126/60 92 L Weight Admit Weight 79.5 kg Weight 120.004 kg I&O: 12/24/20 12/25/20 12/26/20 06:59 06:59 06:59 Intake Total 600 Output Total 0 Balance 600 Result Diagrams: 12/25/20 04:07 12/25/20 04:07 Phys Exam - Physical Examination Constitutional: NAD Respiratory: no wheezing, no rales, no rhonchi, clear to auscultation bilateral Cardiovascular: RRR, no significant murmur, no rub Gastrointestinal: soft, non-tender, no distention, positive bowel sounds Dx/Plan - Plan Plan: Acute Hypoxic Respiratory failure 2/2 fluid overload from missed dialysis, resolved - Per EMS report O2 sats at 80s when arrived on scene. COVID/Flu negative, s/p Rocephin/Azithro in ED - Currently on 1-2L NC, uses 2 at home - Awaiting placement ESRD on HD MWF - Initial potassium 6.1 on admission with evidence of peaked T waves, s/p calcium gluconate in ED, electrolytes improved s/p HD - Dialysis per Dr. Alva molina NSTEMI type 2 - Likely Type II 2/2 fluid overload and ESRD - Cardiology, Dr. Avitia consulted, appreciate recommendations - ECHO with EF of 35-40%during this admission, 40% EF 2019 HTN - Home medications Anemia - Chronic CAD - Continue home IMDUR/B blockers - restarted ASA/statin HFrEF - EF 40-45% 06/06/2020 with inferior wall hypokinesis; repeat 12/22/20 EF 35-40% - Continue to monitor fluid status Hx of T2DM - A1C 4.9, diet controlled Constipation,resolved Code: Full Diet: Renal High protein, HH DVT ppx: heparin GI ppx: none PCP: Dr. Yang, [employer] Dispo: Patient is ready for discharge as soon as rehab bed available. Addendum - Attending - Attending Attestation Date/Time: 12/26/20 [id number] I personally evaluated the patient and discussed the management with Dr. Irizarry. I agree with the History, Examination, Assessment and Plan documented above with any addition or exceptions noted below.
[2020-12-26] MEDS: Heparin 5,000 UNITS/ML VIAL SC SCH ×3 (07:42→19:54)
[2020-12-26] MEDS: Aspirin 81 mg Enteric Coated Tablet PO SCH (07:42)
[2020-12-26 08:57] VITALS: BMI 44.2
[2020-12-26] MEDS: hydrALAZINE 25 MG TAB PO SCH ×2 (09:38→19:55)
[2020-12-26] MEDS: Carvedilol 25 MG TAB PO SCH ×2 (09:38→16:54)
[2020-12-26] MEDS: Amlodipine 5 MG TAB PO SCH (09:39)
--- NOTE | 2020-12-26 15:19 | PRG ---
DATE OF SERVICE: 12/26/2020 SUBJECTIVE: Patient was seen and examined at bedside and overnight events noted. Patient denies any shortness of breath or chest pain or palpitation. No history of nausea or vomiting or diarrhea or fever or chills or cramps. OBJECTIVE: GENERAL: This is a well-built female, in no apparent distress. VITAL SIGNS: Temperature . Heart Rate 75. Respiratory rate 19. Blood pressure 148/63. HEENT: Atraumatic, normocephalic. Oral mucosa is moist. NECK: Supple. CARDIOVASCULAR: S1, S2 heard. Rate and rhythm regular. RESPIRATORY: Clear to auscultation. GASTROINTESTINAL: Abdomen is soft. MUSCULOSKELETAL: No tenderness. No edema. DERMATOLOGIC: No skin rash. NEUROLOGIC: Alert and awake and oriented x3. No focal neurologic deficits. Moving all the extremities. PSYCHIATRIC: Mood and affect normal. LABORATORY DATA: Potassium 4.7, BUN is 36, and creatinine is 4.6. ASSESSMENT AND PLAN: 1. End-stage renal disease. The patient is seen during dialysis, tolerating well. 2. History of hypertension. 3. Anemia. 4. Edema, controlled. Plan is to continue on dialysis as tolerated. Job ID: [id number]
[2020-12-26 19:47] VITALS: BP 123/89; TEMP 98.1
[2020-12-26] MEDS: Rosuvastatin 10 MG TAB PO SCH (19:54)
[2020-12-26] MEDS: Guaifenesin DM 100-10/5 ML UDCUP PO PRN (20:50)
--- NOTE | 2020-12-27 10:54 | DIS ---
DATE OF ADMISSION: 12/19/2020 DATE OF DISCHARGE: 12/26/2020 DISCHARGE ATTENDING: Dr. Fregoso. CONSULTS: Cardiology, Dr. Avitia on 12/20/2020. PROCEDURES: 1. Patient had an echocardiogram done on 12/22/2020 that showed ejection fraction of about 35% to 40% with mildly dilated left atrium, mildly increased left ventricular size with moderate mitral regurgitation and sclerotic aortic valve. 2. The patient went to regular scheduled dialysis Saturday, Saturday, Saturday. PRIMARY DIAGNOSIS: Hyperkalemia. SECONDARY DIAGNOSES: 1. Acute hypoxic respiratory failure, likely due to pleural effusions. 2. End-stage renal disease, on hemodialysis Saturday, Saturday, Saturday. 3. Type 2 diabetes. 4. Hypertension. 5. Anemia. 6. Coronary artery disease. 7. Congestive heart failure. 8. Constipation. DISCHARGE MEDICATIONS: 1. Tylenol 650 mg p.o. q.4 hours p.r.n. 2. Albuterol 2 puffs inhaled q.6 hours p.r.n. 3. Amlodipine 5 mg p.o. daily. 4. Aspirin 81 mg p.o. daily. 5. Coreg 25 mg p.o. b.i.d. 6. Benadryl 50 mg p.o. q.8 hours p.r.n. for itching. 7. Ferric citrate 210 mg p.o. t.i.d. 8. Hydralazine 25 mg p.o. b.i.d. 9. DuoNeb 1 ampule p.o. inhaled q.6 hours p.r.n. 10. Imdur 30 mg p.o. q.i.d. 11. Probiotic 1 capsule p.o. daily. 12. Rosuvastatin 10 mg p.o. q.h.s. 13. Renvela 2400 mg p.o. t.i.d. 14. Tizanidine 1 tablet p.o. q.6 hours p.r.n. for pain. 15. Ubidecarenone 400 mg p.o. daily. DISCONTINUED MEDICATIONS: None. HISTORY OF PRESENT ILLNESS/HOSPITAL COURSE: The patient is a 70-year-old female with past medical history significant for end-stage renal disease on hemodialysis Saturday, Saturday, Saturday, and congestive heart failure and presented to the ED for shortness of breath after missing 2 days of dialysis. Patient reported increased fluid accumulation in lower extremity and cough. In the ED, patient was placed on BiPAP due to tachypnea and increased work of breathing and received treatment for community-acquired pneumonia. Initial labs significant for potassium of 6.3 leading to urgent hemodialysis. The patient's troponin trended from 0.1 on admission to 0.6. Patient was started on therapeutic heparin and Cardiology was consulted. The patient was stable with no chest pain. Increase in troponin, likely due to demand ischemia with fluid overload. Dr. Avitia was consulted and restarted home medications and got echo as above. This was stable from an echo done in May 2020 where ejection fraction was 40% to 45%. The patient initially received dialysis 2 days in a row, then returned to normal Saturday, Saturday, Saturday scheduling. Physical Therapy and Occupational Therapy worked with the patient who recommended inpatient rehab after hospital stay. Patient was stable for the remainder of the hospital stay until she was able to be discharged and admitted to an inpatient rehab facility. DISPOSITION: Stable. DISCHARGE INSTRUCTIONS: 1. Location: [facility]. 2. Diet: Heart healthy, renal diet, high-protein. 3. Activity: As tolerated. 4. Followup: The patient should follow up with primary care doctor, Dr. Yang at [facility] within 2 weeks. Patient should follow up with fur mixer within 4 weeks. Job ID: [id number]
== END 2020-12-26 20:50 | DRG 280 ==
LOC: ERS 10:08 → ERHOLD 11:41 → 2NO 12-20 15:42
PROVIDERS: ADMIT Family Medicine; ATTEND Family Medicine
PROC: 5A1D70Z Performance of Urinary Filtration, Intermittent, Less than 6 Hours Per Day (ICD-10-PCS; principal; 2020-12-19)
PROC: 5A09357 Assistance with Respiratory Ventilation, Less than 24 Consecutive Hours, Continuous Positive Airway Pressure (ICD-10-PCS; 2020-12-19)
DX: I13.2 Hypertensive heart and chronic kidney disease with heart failure and with stage 5 chronic kidney disease, or end stage renal disease (principal); J96.01 Acute respiratory failure with hypoxia; I21.A1 Myocardial infarction type 2; N18.6 End stage renal disease; I50.23 Acute on chronic systolic (congestive) heart failure; N25.81 Secondary hyperparathyroidism of renal origin; E87.2 Acidosis; I42.0 Dilated cardiomyopathy; Z20.822 Contact with and (suspected) exposure to COVID-19; E87.5 Hyperkalemia; E87.70 Fluid overload, unspecified; E11.22 Type 2 diabetes mellitus with diabetic chronic kidney disease; F41.9 Anxiety disorder, unspecified; D63.1 Anemia in chronic kidney disease; H54.8 Legal blindness, as defined in USA; E78.5 Hyperlipidemia, unspecified; K59.00 Constipation, unspecified; F32.9 Major depressive disorder, single episode, unspecified; I27.20 Pulmonary hypertension, unspecified; I25.5 Ischemic cardiomyopathy; I25.2 Old myocardial infarction; Z91.19 Patient's noncompliance with other medical treatment and regimen; Z99.2 Dependence on renal dialysis; Z95.1 Presence of aortocoronary bypass graft; Z95.0 Presence of cardiac pacemaker; Z90.49 Acquired absence of other specified parts of digestive tract; Z98.42 Cataract extraction status, left eye; Z98.41 Cataract extraction status, right eye; Z90.710 Acquired absence of both cervix and uterus; Z88.5 Allergy status to narcotic agent; Z79.899 Other long term (current) drug therapy; Z79.82 Long term (current) use of aspirin; Z82.49 Family history of ischemic heart disease and other diseases of the circulatory system
CPT/HCPCS: 0240U; 36415; 36416; 71045; 80048; 80053; 80061; 82330; 82550; 82553; 82607; 82747; 82803; 83036; 83605; 83880; 84145; 84484; 85025; 85730; 86850; 86900; 86901; 87040; 90935; 93005; 93306; 96365; 96367; 96375; G0257; J0456; J0696; J1644; J2001; J2060; J2405; Q0162

== ENCOUNTER 2021-02-24 04:28 | Emergency (ER) | payer MEDICARE ==
[2021-02-24] MEDS ORDERED: Albuterol Sulfate 2.5 mg/3 ml Neb ONE (04:37)
[2021-02-24 05:13] LABS: #Basophils 0.1 thou/uL (0.0-0.2); #Lymphocytes 1.8 thou/uL (1.20-3.40); #Monocytes 0.3 thou/uL (0.11-0.59); #Neutrophils 9.2 thou/uL (1.40-6.50); %Basophils 0.6 % (0.0-1.0); %Eosinophils 0.2 % (0.0-10.0); %Lymphocytes 16.1 % (21.0-51.0); %Monocytes 2.9 % (0.0-10.0); %Neutrophils 80.2 % (42.0-75.0); Hemoglobin 13.2 g/dL (12.0-16.0); Mean Corpuscular HGB CONC 30.3 g/dL (32.0-36.0); Mean Corpuscular Hemoglobin 31.7 pg (27.0-31.0); Platelet Count 238 thou/uL (130-400); RBC Distribution Width 14.1 % (11.5-14.5); Red Blood Cell (RBC) Count 4.15 mill/uL (4.20-5.40); White Blood Cell (WBC) Count 11.4 thou/uL (4.8-10.8)
[2021-02-24 05:36] LABS: ALT (SGPT) 16 U/L (8-55); AST (SGOT) 36 U/L (5-34); Alkaline Phosphatase 106 U/L (40-110); Anion Gap 27 mmol/L (10-20); BUN (Urea Nitrogen) 58 mg/dL (9.8-20.1); Bilirubin, Total 0.8 mg/dL (0.2-1.2); Calc. Creatinine Clearance 0 mL/min (70-130); Calcium 9.5 mg/dL (7.8-10.44); Carbon Dioxide 23 mmol/L (23-31); Chloride 97 mmol/L (98-107); Glucose 156 mg/dL (83-110); Potassium 5.3 mmol/L (3.5-5.1); Sodium 142 mmol/L (136-145)
[2021-02-24 06:53] LABS: CKMB 2.4 ng/mL (0-6.6)
[2021-02-24 07:04] LABS: Troponin I 0.095 ng/mL (< 0.028)
[2021-02-24 10:55] LABS: SARS-CoV-2 PCR by NAA Not Detected (NotDetected)
== END 2021-02-24 14:20 | disposition short-term general hospital (02) ==
LOC: ERS 04:28
DX: J44.1 Chronic obstructive pulmonary disease with (acute) exacerbation (principal); Z20.822 Contact with and (suspected) exposure to COVID-19; Z79.899 Other long term (current) drug therapy; E11.9 Type 2 diabetes mellitus without complications; I11.0 Hypertensive heart disease with heart failure; I50.9 Heart failure, unspecified; D50.9 Iron deficiency anemia, unspecified
CPT/HCPCS: 71045; 80053; 82553; 84484 ×2; 85025; 93005; 94640; 94644; U0003; U0005; 36415; 87635; J7611; J7620

== ENCOUNTER 2021-04-10 14:32 | Inpatient (IN) | payer MEDICARE ==
[2021-04-10 16:47] LABS: #Eosinphils 0.1 thou/uL (0.0-0.7); #Lymphocytes 0.9 thou/uL (1.20-3.40); #Monocytes 0.4 thou/uL (0.11-0.59); #Neutrophils 7.6 thou/uL (1.40-6.50); %Basophils 0.3 % (0.0-1.0); %Eosinophils 0.9 % (0.0-10.0); %Lymphocytes 10.3 % (21.0-51.0); %Monocytes 4.5 % (0.0-10.0); %Neutrophils 83.9 % (42.0-75.0); Hemoglobin 11.6 g/dL (12.0-16.0); Mean Corpuscular HGB CONC 33.2 g/dL (32.0-36.0); Mean Corpuscular Hemoglobin 35.3 pg (27.0-31.0); Mean Platelet Volume 8.5 fL (7.4-10.4); Platelet Count 245 thou/uL (130-400); RBC Distribution Width 12.3 % (11.5-14.5); Red Blood Cell (RBC) Count 3.28 mill/uL (4.20-5.40)
[2021-04-10 17:07] LABS: Phosphorus 5.7 mg/dL (2.3-4.7)
[2021-04-10 17:08] LABS: ALT (SGPT) Less than 7 U/L (8-55); AST (SGOT) 26 U/L (5-34); Albumin 3.5 g/dL (3.4-4.8); Alkaline Phosphatase 90 U/L (40-110); Anion Gap 18 mmol/L (10-20); BUN (Urea Nitrogen) 43 mg/dL (9.8-20.1); Bilirubin, Total 0.5 mg/dL (0.2-1.2); Calc. Creatinine Clearance 0 mL/min (70-130); Calcium 8.9 mg/dL (7.8-10.44); Carbon Dioxide 30 mmol/L (23-31); Chloride 98 mmol/L (98-107); Globulin 3.4 g/dL (2.4-3.5); Glucose 182 mg/dL (83-110); Magnesium 3.2 mg/dL (1.6-2.6); Potassium 4.8 mmol/L (3.5-5.1); Protein, Total 6.9 g/dL (5.8-8.1); Sodium 141 mmol/L (136-145)
[2021-04-10] MEDS ORDERED: Ondansetron ODT 4 MG TAB PO PRN (19:16)
[2021-04-10 19:43] LABS: SARS-CoV-2 NAA Rapid Test Not Detected (NotDetected)
[2021-04-10] MEDS: hydrOXYzine 25 MG TAB PO PRN (21:28)
[2021-04-10] MEDS: Acetaminophen 325 MG TAB PO PRN (21:28)
[2021-04-10] MEDS ORDERED: diphenhydrAMINE 25 MG CAP PO PRN (21:33)
[2021-04-10] MEDS ORDERED: Albuterol Sulfate 2.5 mg/3 ml Neb NEB PRN (21:40)
[2021-04-10] MEDS: Heparin 5,000 UNITS/ML VIAL SC SCH (21:47)
[2021-04-11 02:54] VITALS: BMI 27.1
[2021-04-11] MEDS: Acetaminophen 325 MG TAB PO PRN ×2 (03:44→17:26)
[2021-04-11] MEDS: hydrOXYzine 25 MG TAB PO PRN ×2 (05:38→22:41)
[2021-04-11 07:24] LABS: #Basophils 0.1 thou/uL (0.0-0.2); #Eosinphils 0.2 thou/uL (0.0-0.7); #Lymphocytes 0.9 thou/uL (1.20-3.40); #Monocytes 0.4 thou/uL (0.11-0.59); #Neutrophils 5.7 thou/uL (1.40-6.50); %Basophils 0.8 % (0.0-1.0); %Eosinophils 2.7 % (0.0-10.0); %Lymphocytes 12.6 % (21.0-51.0); %Neutrophils 77.9 % (42.0-75.0); Hemoglobin 10.5 g/dL (12.0-16.0); Mean Corpuscular HGB CONC 32.5 g/dL (32.0-36.0); Mean Corpuscular Hemoglobin 34.8 pg (27.0-31.0); Mean Platelet Volume 8.1 fL (7.4-10.4); Platelet Count 221 thou/uL (130-400); RBC Distribution Width 12.1 % (11.5-14.5); Red Blood Cell (RBC) Count 3.03 mill/uL (4.20-5.40); White Blood Cell (WBC) Count 7.3 thou/uL (4.8-10.8)
[2021-04-11 07:46] LABS: Anion Gap 13 mmol/L (10-20); BUN (Urea Nitrogen) 18 mg/dL (9.8-20.1); Calc. Creatinine Clearance 17 mL/min (70-130); Calcium 8.6 mg/dL (7.8-10.44); Carbon Dioxide 32 mmol/L (23-31); Chloride 98 mmol/L (98-107); Glucose 102 mg/dL (83-110); Potassium 3.8 mmol/L (3.5-5.1); Sodium 139 mmol/L (136-145)
[2021-04-11] MEDS ORDERED: FERRIC CITRATE 210 MG PO SCH (08:00)
[2021-04-11] MEDS: Heparin 5,000 UNITS/ML VIAL SC SCH ×3 (08:45→22:41)
[2021-04-11] MEDS: Lactinex Tablet PO SCH (08:46)
[2021-04-11] MEDS: Sevelamer Carbonate 800 MG TAB PO SCH ×3 (08:47→19:26)
[2021-04-11] MEDS: hydrALAZINE 25 MG TAB PO SCH ×2 (08:47→22:40)
[2021-04-11] MEDS: Carvedilol 25 MG TAB PO SCH ×2 (08:47→22:43)
[2021-04-11] MEDS: Amlodipine 5 MG TAB PO SCH (08:47)
[2021-04-11] MEDS: Aspirin 81 mg Enteric Coated Tablet PO SCH (08:48)
[2021-04-11] MEDS: Ubidecarenone 50 MG CAP PO SCH (08:48)
[2021-04-11] MEDS: Lidocaine 5% Patch TD SCH (08:49)
[2021-04-11] MEDS: Ondansetron PF 4 MG/2 ML Vial IVP PRN (12:29)
[2021-04-11] MEDS: Rosuvastatin 10 MG TAB PO SCH (22:40)
[2021-04-11] MEDS: Lidocaine Patch Removal TOP SCH (22:43)
[2021-04-12] MEDS: Heparin 5,000 UNITS/ML VIAL SC SCH ×3 (07:30→20:07)
[2021-04-12] MEDS: Carvedilol 25 MG TAB PO SCH ×2 (07:30→16:09)
[2021-04-12] MEDS: Sevelamer Carbonate 800 MG TAB PO SCH ×4 (07:30→17:18)
[2021-04-12] MEDS: Acetaminophen 325 MG TAB PO PRN (08:26)
[2021-04-12] MEDS: Ondansetron PF 4 MG/2 ML Vial IVP PRN (08:27)
[2021-04-12] MEDS: Lactinex Tablet PO SCH (11:33)
[2021-04-12] MEDS: Aspirin 81 mg Enteric Coated Tablet PO SCH (11:33)
[2021-04-12] MEDS: hydrALAZINE 25 MG TAB PO SCH ×2 (11:33→20:07)
[2021-04-12] MEDS: Amlodipine 5 MG TAB PO SCH (11:33)
[2021-04-12] MEDS: Lidocaine 5% Patch TD SCH (11:34)
[2021-04-12] MEDS: hydrOXYzine 25 MG TAB PO PRN ×2 (11:34→20:20)
[2021-04-12] MEDS: Ubidecarenone 50 MG CAP PO SCH (11:37)
[2021-04-12] MEDS: tiZANidine HCl 4 MG TAB PO PRN ×2 (14:42→20:21)
[2021-04-12] MEDS ORDERED: Sevelamer Carbonate 800 MG TAB PO SCH (17:30)
[2021-04-12] MEDS: Rosuvastatin 10 MG TAB PO SCH (20:07)
[2021-04-12] MEDS: Lidocaine Patch Removal TOP SCH (20:20)
[2021-04-13] MEDS ORDERED: Polyethylene Glycol 3350 17 GM Packet PO PRN (05:03)
[2021-04-13] MEDS: tiZANidine HCl 4 MG TAB PO PRN ×2 (06:20→11:12)
[2021-04-13 08:14] LABS: #Eosinphils 0.2 thou/uL (0.0-0.7); #Monocytes 0.2 thou/uL (0.11-0.59); #Neutrophils 4.9 thou/uL (1.40-6.50); %Basophils 0.1 % (0.0-1.0); %Eosinophils 2.8 % (0.0-10.0); %Lymphocytes 16.3 % (21.0-51.0); %Monocytes 3.5 % (0.0-10.0); %Neutrophils 77.3 % (42.0-75.0); Hemoglobin 9.9 g/dL (12.0-16.0); Mean Corpuscular HGB CONC 31.3 g/dL (32.0-36.0); Mean Corpuscular Hemoglobin 33.5 pg (27.0-31.0); Mean Platelet Volume 8.2 fL (7.4-10.4); Platelet Count 184 thou/uL (130-400); RBC Distribution Width 12.2 % (11.5-14.5); Red Blood Cell (RBC) Count 2.95 mill/uL (4.20-5.40); White Blood Cell (WBC) Count 6.4 thou/uL (4.8-10.8)
[2021-04-13] MEDS: Sevelamer Carbonate 800 MG TAB PO SCH ×3 (08:17→14:27)
[2021-04-13] MEDS: Heparin 5,000 UNITS/ML VIAL SC SCH (08:17)
[2021-04-13] MEDS: Carvedilol 25 MG TAB PO SCH (08:17)
[2021-04-13] MEDS: Aspirin 81 mg Enteric Coated Tablet PO SCH (08:17)
[2021-04-13] MEDS: Lactinex Tablet PO SCH (08:17)
[2021-04-13] MEDS: Amlodipine 5 MG TAB PO SCH (08:17)
[2021-04-13] MEDS: Ubidecarenone 50 MG CAP PO SCH (08:18)
[2021-04-13] MEDS: Lidocaine 5% Patch TD SCH (08:18)
[2021-04-13] MEDS: hydrALAZINE 25 MG TAB PO SCH (08:19)
[2021-04-13 08:28] LABS: ALT (SGPT) Less than 7 U/L (8-55); AST (SGOT) 13 U/L (5-34); Albumin 2.7 g/dL (3.4-4.8); Alkaline Phosphatase 65 U/L (40-110); Anion Gap 10 mmol/L (10-20); BUN (Urea Nitrogen) 21 mg/dL (9.8-20.1); Bilirubin, Total 0.4 mg/dL (0.2-1.2); Calc. Creatinine Clearance 16 mL/min (70-130); Calcium 8.9 mg/dL (7.8-10.44); Carbon Dioxide 36 mmol/L (23-31); Chloride 95 mmol/L (98-107); Globulin 2.7 g/dL (2.4-3.5); Glucose 92 mg/dL (83-110); Potassium 4.2 mmol/L (3.5-5.1); Protein, Total 5.4 g/dL (5.8-8.1); Sodium 137 mmol/L (136-145)
[2021-04-13] MEDS ORDERED: Senokot S 8.6-50 MG TAB PO SCH (09:00)
[2021-04-13 11:35] VITALS: BP 143/63; TEMP 98
== END 2021-04-13 14:40 | DRG 640 ==
LOC: ERS 14:32 → T4-B 18:32
PROVIDERS: ADMIT Family Medicine; ATTEND Family Medicine
PROC: 5A1D70Z Performance of Urinary Filtration, Intermittent, Less than 6 Hours Per Day (ICD-10-PCS; principal; 2021-04-12)
DX: E87.70 Fluid overload, unspecified (principal); N18.6 End stage renal disease; J96.10 Chronic respiratory failure, unspecified whether with hypoxia or hypercapnia; I13.2 Hypertensive heart and chronic kidney disease with heart failure and with stage 5 chronic kidney disease, or end stage renal disease; N17.9 Acute kidney failure, unspecified; I50.22 Chronic systolic (congestive) heart failure; D53.9 Nutritional anemia, unspecified; R53.81 Other malaise; G89.29 Other chronic pain; M54.2 Cervicalgia; E11.22 Type 2 diabetes mellitus with diabetic chronic kidney disease; I25.10 Atherosclerotic heart disease of native coronary artery without angina pectoris; R62.7 Adult failure to thrive; Z20.822 Contact with and (suspected) exposure to COVID-19; Z68.27 Body mass index [BMI] 27.0-27.9, adult; Z79.82 Long term (current) use of aspirin; I25.2 Old myocardial infarction; Z95.1 Presence of aortocoronary bypass graft; Z99.2 Dependence on renal dialysis; Z90.49 Acquired absence of other specified parts of digestive tract; Z88.5 Allergy status to narcotic agent; Z91.15 Patient's noncompliance with renal dialysis; Z99.81 Dependence on supplemental oxygen
CPT/HCPCS: 36415; 71045; 80048; 80053; 83735; 84100; 85025; 93005; 93923; J1644; J2405; U0002; U0005